=== PATIENT | female | born 1945 | race Caucasian/White ===

== ENCOUNTER 2019-06-22 13:02 | Outpatient (CLI) | payer MEDICARE, MEDICAID, SELFPAY ==
--- NOTE | 2019-06-22 13:12 | XR_ITS ---
WS: [id number] SHOULDER RIGHT TECHNIQUE: 3 views of the right shoulder CLINICAL INFORMATION: OSTEOARTHRITIS SHOULDER RIGHT COMPARISON: None. FINDINGS: Osteopenia. Moderate degenerative arthritis at the AC joint. Narrowing of the glenohumeral joint. A f ew calcified loose bodies within the glenohumeral joint and axillary recess. No acute fractures. XR/XR shoulder RT min 2V* [id number] IMPRESSION: 1. Moderate degenerative arthritis AC joint. 2. Moderate degenerative narrowing of the glenohumeral joint with a few calcif ied loose bodies measuring up to 2.3 CM.
--- NOTE | 2019-06-22 13:19 | XR_ITS ---
WS: [id number] SHOULDER LEFT TECHNIQUE: 3 views of the left shoulder CLINICAL INFORMATION: OSTEOARTHRITIS SHOULDER LEFT COMPARISON: None. FINDINGS: Osteopenia. Mild degenerative arthritis at the AC joint. Rotator cuff arthropathy. Mild degenerative narrowing glenohumeral joint. No acute fractures. Partially visualized left lung is unremarkable. XR/XR shoulder LT min 2V* [id number] IMPRESSION: Mild degenerative arthritis left shoulder. No acute fractures.
== END 2019-06-22 13:03 | disposition home or self-care (01) ==
LOC: WPI 13:07
PROVIDERS: Family Provider Family Medicine; PCP Family Medicine; Visit Provider Family Medicine
DX: M19.012 Primary osteoarthritis, left shoulder (principal); M19.011 Primary osteoarthritis, right shoulder; M24.011 Loose body in right shoulder
CPT/HCPCS: 73030

== ENCOUNTER 2019-08-16 13:04 | Outpatient (CLI) | payer MEDICARE, MEDICAID, SELFPAY ==
--- NOTE | 2019-08-16 13:15 | USCV_ITS ---
Loreta Goode Age: 73 Gender: F : 1945 Exam Date: 08/16/2019 13:29 Ordering Phys: Mian Valero MD Technologist: Heydi Elaine Exam Location: [facility] [place] Indication: LEFT LEG PAIN RIGHT LEFT Brachial 139.00 mmHg Brachial 109.00 mmHg Pressure (mmHg) Waveform Pressure (mmHg) Waveform HULL DRAFTER 220.00 DPA 182.00 Ankle/Brachial Index 1.31 Pre-Exercise Toe Pressure 78.00 Pre-Exercise Toe/Brachial Index 0.56 FINDINGS Normal resting JUVENCIO of 1.31 on the left side. Slightly diminished resting TBI. PVR waveforms showing slight blunting of the dicrotic notch. CONCLUSIONS Features of mild peripheral artery disease on the left side Dr Andrew Guerrero MD [facility] (Electronically Signed) Final Date: 17 August 2019 10:33 S
== END 2019-08-16 13:05 | disposition home or self-care (01) ==
LOC: US 13:09
PROVIDERS: Family Provider Family Medicine; PCP Family Medicine; Visit Provider Family Medicine
DX: M79.605 Pain in left leg (principal); I73.9 Peripheral vascular disease, unspecified
CPT/HCPCS: 93922

== ENCOUNTER → 2021-01-08 10:52 | Outpatient (BNVA) | payer MEDICARE, MEDICAID, SELFPAY | PROVIDERS: Family Provider Family Medicine; PCP Family Medicine; Visit Provider Emergency Medicine | DX: Z20.822 Contact with and (suspected) exposure to COVID-19 (principal) | CPT/HCPCS: 87635 ==

== ENCOUNTER 2021-06-28 18:09 | Emergency (ER) | payer MEDICARE, MEDICAID, SELFPAY ==
[2021-06-28 18:13] VITALS: BP 141/82; PULSE 68; RESP 26; TEMP 37.1; O2SAT 95; BMI 30.4
[2021-06-28 18:29] VITALS: BP 121/66; PULSE 75; RESP 18; O2SAT 95
--- NOTE | 2021-06-28 18:35 | ECG_ITS ---
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 Measurements Intervals [place] Rate: 63 P: NM: QRS: 38 QRSD: 91 T: -7 QT: 399 QTc: 411 Interpretive Statements ATRIAL FIBRILLATION NONSPECIFIC T-WAVE ABNORMALITY ABNORMAL RHYTHM ECG No previous ECG available for comparison Electronically Signed On 06-30-2021 5:05:26 METER SHOP SUPERINTENDENT by Dara Terry M.D. [id number]
--- NOTE | 2021-06-28 18:35 | XRR_ITS ---
PROCEDURE INFORMATION: Exam: XR Chest Exam date and time: 06/28/2021 6:35 PM Age: 75 years old Clinical indication: Chest wall pain; Additional info: Chest pain TECHNIQUE: Imaging protocol: XR of the chest. Views: 1 view. COMPARISON: CR Chest 2 views* [id number] 02/14/2017 1:53 PM FINDINGS: Lungs: Unremarkable. No consolidation. Pleural spaces: Unremarkable. No pleural effusion. No pneumothorax. Heart/Mediastinum: Unremarkable. No cardiomegaly. Bones/joints: Visualized osseous structures are intact. Rounded calcifications project around the glenohumeral joint suggestive of joint bodies. XR/XR chest 1V portable [id number] IMPRESSION: No acute findings.
[2021-06-28] MEDS: ondansetron 2 mg/ML SDV 2 mL 4 MG IVP (18:45)
[2021-06-28] MEDS: morphine 4 mg/mL SDV 1 mL IVP (18:46)
[2021-06-28 18:51] LABS: Basophils % 0.2 %; Eosinophils # 0.1 10^3/uL (0.0-0.8); Eosinophils % 1.7 %; Hematocrit 45.5 % (37.0-47.0); Hemoglobin 14.7 g/dL (11.5-15.3); Lymphocytes # 1.7 10^3/uL (0.8-4.8); Lymphocytes % 20.7 %; Mean Corpuscular HGB Conc 32.3 g/dL (30.0-36.0); Mean Corpuscular Hemoglobin 30.4 pg (28.0-34.0); Mean Corpuscular Volume 94.2 fl (81-99); Mean Platelet Volume 10.6 fL (7.4-10.4); Monocytes # 0.7 10^3/uL (0.2-0.9); Monocytes % 8.4 %; Neutrophils # 5.53 10^3/uL (1.8-7.7); Neutrophils % 68.6 %; Nucleated Red Blood Cells % 0 %; Platelet Count 355 10^3/cmm (130-400); Red Blood Count 4.83 10^6/uL (4.1-5.3); Red Cell Distribution Width 14.3 % (12.1-15.1); White Blood Count 8.1 10^3/uL (4.0-10.0)
[2021-06-28 18:56] LABS: INR 1.62 (0.8-1.2)
[2021-06-28 19:05] LABS: Troponin(5th) Baseline 40 ng/L (0-10)
--- NOTE | 2021-06-28 19:06 | W.ED.CHESTPA ---
HPI - Chest Pain General: Chief Complaint: Chest Pain Stated Complaint: CHEST PAIN Time Seen by Provider: 06/28/21 18:11 Source: patient History of Present Illness: HPI narrative: 75-year-old female presents to emergency department chief complaint of having intermittent episodic chest pain that was worse on the right side on the chest left-sided chest that was minimally improved with nitroglycerin patches and tablet patient reports that she is on chronic nitro patches which she had to applied to her skin in which he took nitro prior to arrival she has a known history of cardiac disease. She reports that she has been seen by telecardiology up now reports no recent medication changes or illnesses she does have a known history of pre-existing open heart bypass. Patient reports currently she has some mild back pain she does report having a known history of a [id number] amputation on the right due to a infection that she sustained several years ago. Patient does not report any shortness of breath or palpitations with her chest discomfort reports no other associated symptoms. MD complaint: chest pain Pertinent past history: coronary artery disease, prior [place] and CABG Onset (ago): hour(s) (2) Onset: during rest Pain location: left chest, right chest and epigastric Pain radiation: none Quality: aching Relieving factors: nothing Exacerbating factors: nothing Associated symptoms: Reports abdominal pain; Deny dyspnea, fever(s), nausea, palpitations or vomiting Treatment prior to arrival: nitroglycerin Review of Systems General: Reports: 10 or more systems reviewed and unremarkable except in HPI and below Const: Denies: fever(s), chills, fatigue or malaise Eyes: Denies: change in vision or blurry vision Card: Reports: chest pain; Denies: palpitations Resp: Denies: dyspnea or productive cough GI: Reports: abdominal pain; Denies: nausea or vomiting : Denies: flank pain Musc: Denies: extremity pain or extremity swelling Skin/Breast: Denies: rash or pruritus Neuro: Denies: headache(s) Psych: Denies: anxiety or depression Jeff/Lymph: Denies: easy bleeding All/Imm: Denies: urticaria, throat swelling or facial swelling PFS ED PFSH: Medical History Atrial fibrillation CAD (coronary artery disease) CHF (congestive heart failure) Depression MIKHAIL (generalized anxiety disorder) GERD (gastroesophageal reflux disease) HTN (hypertension) Lumbar radiculopathy Neuropathy Obstructive sleep apnea Right above-knee amputee 2000 Surgical History Hx of cholecystectomy Hx of hysterectomy Hx of thyroidectomy 1998 Family History Other Diabetes Hypertension Myocardial infarction Social History Alcohol intake: never Physical Exam Narrative: EXAM NARRATIVE: Patient appears nontoxic in which appears in no obvious acute distress on exam. Const: COMMON NORMALS: no acute distress, patient oriented x3 and healthy appearing HENMT: COMMON NORMALS: normocephalic and atraumatic HEAD & SCALP: normocephalic and atraumatic Eye: COMMON NORMALS: Equal, round and reactive pupils present and EOMs intact bilaterally PUPIL: Yes Equal, round and reactive pupils present Neck/C-Spine: COMMON NORMALS: full ROM, supple and no JVD Lymph: LYMPHATIC: no lymphadenopathy noted Chest: COMMONS NORMALS: normal inspection of the chest and normal palpation of entire chest wall Resp: COMMON NORMALS: normal respiratory effort, No retractions and clear to auscultation bilaterally EFFORT & INSPECTION: Yes able to speak in complete sentences and Yes symmetric chest movement AUSCULTATION: clear to auscultation bilaterally Cardio: COMMON NORMALS: no JVD, regular rate and regular rhythm RATE: regular rate RHYTHM: regular rhythm GI: COMMON NORMALS: Normal to inspection, nondistended, normoactive bowel sounds present, Soft to palpation and non-tender INSPECTION: Yes normal to inspection PALPATION: Yes Soft to palpation : COMMON NORMALS: Yes no CVA tenderness BLADDER/KIDNEY EXAM: Yes no CVA tenderness Back/Pelvis: COMMON NORMALS: no CVA tenderness Extremity: COMMON NORMALS: normal to inspection and full ROM Neuro: COMMON NORMALS: patient oriented x3, CN's II-XII intact bilaterally, moves all extremities and no focal motor deficits Psych: COMMON NORMALS: mental status grossly normal, Normal thought process present, cooperative and normal affect THOUGHT PROCESS: Normal thought process present Skin: COMMON NORMALS: no rashes or lesions noted GENERAL SKIN EXAM: no rashes or lesions noted Course ED course: Due to the patient's symptoms and condition lab work imaging will be obtained patient will be provided morphine for her breakthrough pain control at this time aspirin were provided per protocol we will continue to follow with a cardiac work-up. Vital Signs: Vital signs: Vital Signs Temperature 98.7 F 06/28/21 18:13 Pulse Rate 75 06/28/21 18:29 Respiratory Rate 18 06/28/21 18:29 Blood Pressure 121/66 06/28/21 18:29 Pulse Oximetry 95 06/28/21 18:29 MDM - Chest Pain MDM Narrative: Medical decision making narrative: Patient's repeat troponin came back with a negative delta 6 both troponins were less than 100 patient had no additional chest pain with emergency department no EKG changes either were noted. At this time be based on patient being currently asymptomatic I did offer admission to the hospital due to I am concerned that this may be an anginal equivalent chest pain in a cardiac despite negative testing patient has declined at this time reporting she would rather further follow-up with her molding press operator and and trial to be discharged home. Advised the patient she continues to use more nitroglycerin patches or pills for the chest pain is unresolved that she must return immediately for further evaluation management as it could be unstable angina or her having a cardiac event. Patient understood the patient's daughter was present during this conversation. Patient will be subsequently discharged home advised further follow-up with Dr. Terry her molding press operator in the next 1 to 2 days which is advised return the interim if any of her symptoms persist or worse. Lab Data: Labs: Lab Results 06/28/21 06/28/21 06/28/21 18:10 18:10 18:10 WBC 8.1 10^3/uL 10^3/ uL (4.0-10.0) RBC 4.83 10^6/uL 10^6 /uL (4.1-5.3) Hgb 14.7 g/dL g/dL (11.5-15.3) Hct 45.5 % % (37.0-47.0) MCV 94.2 fl fl (81-99) MCH 30.4 pg pg (28.0-34.0) MCHC 32.3 g/dL g/dL (30.0-36.0) RDW 14.3 % % (12.1-15.1) Plt Count 355 10^3/cmm 10^3 /cmm (130-400) MPV 10.6 fL H fL (7.4-10.4) Neut % (Auto) 68.6 % % Lymph % (Auto) 20.7 % % [place] % (Auto) 8.4 % % Eos % (Auto) 1.7 % % Baso % (Auto) 0.2 % % Neut # (Auto) 5.53 10^3/uL 10^3 /uL (1.8-7.7) Lymph # (Auto) 1.7 10^3/uL 10^3/ uL (0.8-4.8) [place] # (Auto) 0.7 10^3/uL 10^3/ uL (0.2-0.9) Eos # (Auto) 0.1 10^3/uL 10^3/ uL (0.0-0.8) Baso # (Auto) 0.0 10^3/uL 10^3/ uL (0.0-0.1) Nucleated RBC % (a uto) 0 % % Nucleated RBCs # 0.0 /100WBC /100W BC PT 19.60 SECONDS H S ECONDS (12.1-14.9) INR 1.62 H (0.8-1.2) APTT 34.0 SECONDS SECO NDS (23.9-36.7) Sodium 139 mmol/L mmol/L (136-145) Potassium 4.1 mmol/L mmol/L (3.5-5.1) Chloride 101 mmol/L mmol/L (98-107) Carbon Dioxide 28 mmol/L mmol/L (22-29) Anion Gap 14.1 (5-19) BUN 12 mg/dL mg/dL (8-23) Creatinine 0.6 mg/dL mg/dL (0.5-0.9) GFR Calculation Not Reportable Glucose 171 mg/dL H mg/dL (65-115) Calculated Osmolal ity 292 mOsm/kg mOsm/ kg (285-295) Calcium 8.6 mg/dL mg/dL (8.5-10.5) Total Bilirubin 1.0 mg/dL mg/dL (0.15-1.2) AST 115 U/L H U/L (0-32) ALT 42 U/L H U/L (0-33) Alkaline Phosphata se 105 IU/L IU/L (35-105) Troponin T Baselin e Troponin T 120 Min [place] Delta Troponin T NT-Pro-B Natriuret Pep 729 pg/mL H pg/mL (0-450) Total Protein 5.7 g/dL L g/dL (6.6-8.7) Albumin 3.8 g/dL g/dL (3.5-5.2) Globulin 1.9 g/dL g/dL (1.3-4.6) Lipase 37 U/L U/L (13-60) Urine Color Urine Appearance Urine pH Ur Specific Gravit y Urine Protein Urine Glucose (UA) Urine Ketones Urine Blood Urine Nitrate Urine Bilirubin Urine Urobilinogen Ur Leukocyte Layne ase 06/28/21 06/28/21 06/28/21 18:10 19:50 20:38 WBC RBC Hgb Hct MCV MCH MCHC RDW Plt Count MPV Neut % (Auto) Lymph % (Auto) [place] % (Auto) Eos % (Auto) Baso % (Auto) Neut # (Auto) Lymph # (Auto) [place] # (Auto) Eos # (Auto) Baso # (Auto) Nucleated RBC % (a uto) Nucleated RBCs # PT INR APTT Sodium Potassium Chloride Carbon Dioxide Anion Gap BUN Creatinine GFR Calculation Glucose Calculated Osmolal ity Calcium Total Bilirubin AST ALT Alkaline Phosphata se Troponin T Baselin e 40 ng/L H ng/L (0-10) Troponin T 120 Min [place] 33.55 ng/L H ng/L (0-10) Delta Troponin T -6.45 ABS# L ABS# (0-10) NT-Pro-B Natriuret Pep Total Protein Albumin Globulin Lipase Urine Color Yellow (Yellow) Urine Appearance Clear (CLEAR) Urine pH 5 (5-7) Ur Specific Gravit y 1.010 (1.005-1.030) Urine Protein Neg (Negative) Urine Glucose (UA) 4+ H (Normal) Urine Ketones Negative (Negative) Urine Blood Neg (Negative) Urine Nitrate Negative (Negative) Urine Bilirubin Neg (Negative) Urine Urobilinogen Norm mg/dL mg/dL (Negative) Ur Leukocyte Layne ase Negative (Negative) Discharge Plan Discharge Patient Disposition: Home Clinical Impression: Chest pain, Angina at rest Condition: Stable Prescriptions: No Action nitroglycerin 0.4 mg tablet, sublingual 0.4 mg sublingual Q5M PRNRF: 0 cinnamon bark [Cinnamon] 500 mg capsule 500 mg PO DAILY RF: 0 Invokana 100 mg tablet 100 mg PO DAILY RF: 0 levothyroxine 100 mcg tablet 100 mcg PO DAILY RF: 0 Lantus Solostar U-100 Insulin 100 unit/mL (3 mL) insulin pen 38 unit SUBCUT DAILY RF: 0 potassium chloride 10 mEq tablet extended release 20 meq PO DAILY RF: 0 pravastatin 80 mg tablet 80 mg PO DAILY RF: 0 duloxetine 60 mg capsule,delayed release(DR/EC) 60 mg PO DAILY RF: 0 metformin 500 mg tablet 500 mg PO BID RF: 0 metoprolol succinate 100 mg tablet extended release 24 hr 100 mg PO DAILY RF: 0 furosemide 20 mg tablet 20 mg PO DAILY RF: 0 warfarin PO RF: 0 pregabalin [Lyrica] 300 mg capsule 300 mg PO BID RF: 0 hydrocodone-acetaminophen [[place]] 10-325 mg tablet 1 tab PO Q8H PRNRF: 0 metoprolol succinate 25 mg tablet extended release 24 hr See Rx Instructions .ROUTE .COMPLEX Qty: 30 RF: 5 Discharge Orders: Discharge ED (Routine); Ordered 06/28/21 Ordered By: Jaswant Wright Referrals: Dara Terry MD [Physician] - 1-3 days Mian Valero MD [Primary Care Provider] - 1-3 days Discharge Diet: Cardiac Discharge Activity: Increase activity as tolerated Patient Instructions: Angina, Angina (ED), Chest Pain (ED), Opioid Safety Activity Restrictions/Additional Instructions: Loreta you were offered both admission to the hospital for year concerns of your heart due to your cardiac history and risk factors in which you have declined in which you have elected to be discharged home with prompt follow-up outpatient with your molding press operator or primary care doctor and contact them in the next 1-2 days. You have been advised by the emergency room physician that if your chest pain returns or is uncontrolled with a nitroglycerin that you are already currently prescribed you are to return immediately to the ER for further assessment and management. It has been indicated to you before it is recommended for you to the chemical stress test it is recommended that you further follow-up with your molding press operator in regards to requiring this to further rule out underlying cardiac issues. Coding Level of Care Code ED Principal Statistical Programmer for Álvaro Fwd Exam Comprehensive
[2021-06-28 19:14] LABS: Alanine Aminotransferase 42 U/L (0-33); Albumin Level 3.8 g/dL (3.5-5.2); Alkaline Phosphatase 105 IU/L (35-105); Anion Gap 14.1 (5-19); Aspartate Amino Transferase 115 U/L (0-32); Blood Urea Nitrogen 12 mg/dL (8-23); Calcium 8.6 mg/dL (8.5-10.5); Carbon Dioxide 28 mmol/L (22-29); Chloride 101 mmol/L (98-107); Globulin 1.9 g/dL (1.3-4.6); Glucose 171 mg/dL (65-115); Lipase 37 U/L (13-60); NT Pro B Type Natriuretic Pept 729 pg/mL (0-450); Osmolality Calculated 292 mOsm/kg (285-295); Potassium 4.1 mmol/L (3.5-5.1); Sodium 139 mmol/L (136-145); Total Protein 5.7 g/dL (6.6-8.7)
[2021-06-28] MEDS: aspirin 81 mg Chew Tablet 324 MG PO (19:49)
[2021-06-28 19:56] LABS: Add Urine Microscopic? NO; Charge for UA Resulting for Rev
[2021-06-28 19:58] LABS: Protein Urine Neg (Negative); Urine Appearance Clear (CLEAR); Urine Color Yellow (Yellow); pH Urine 5 (5-7)
[2021-06-28 19:59] LABS: Bilirubin Urine Neg (Negative); Blood Urine Neg (Negative); Glucose Urine UA 4+ (Normal); Ketones Urine Negative (Negative); Leukocyte Esterase Urine Negative (Negative); Nitrate Urine Negative (Negative); Urobilinogen Urine Norm (Negative)
--- NOTE | 2021-06-28 20:35 | ECG_ITS ---
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 Measurements Intervals [place] Rate: 71 P: [place]: QRS: -12 QRSD: 90 T: -30 QT: 370 QTc: 404 Interpretive Statements ATRIAL FIBRILLATION ANTERIOR MYOCARDIAL INFARCTION , OF INDETERMINATE AGE [40+ ms Q WAVE AND/OR ST/T ABNORMALITY IN V3/V4] INFERIOR MYOCARDIAL INFARCTION , OF INDETERMINATE AGE [40+ ms Q WAVE AND/OR ST/T ABNORMALITY IN II/aVF] Compared to ECG 06/28/2021 18:48:52 Myocardial infarct finding now present T-wave abnormality no longer present Electronically Signed On 06-30-2021 5:19:19 BUS ATTENDANT by Dara Terry M.D. [id number]
[2021-06-28 21:08] LABS: Troponin 5 2HR 33.55 ng/L (0-10)
[2021-06-28 21:16] LABS: Troponin 5 2HR Delta -6.45 ABS# (0-10)
[2021-06-28 22:22] VITALS: BP 122/76; PULSE 88; RESP 25; O2SAT 98
== END 2021-06-28 22:24 | disposition home or self-care (01) ==
PROVIDERS: Emergency Provider Emergency Medicine; PCP Family Medicine
DX: I25.119 Atherosclerotic heart disease of native coronary artery with unspecified angina pectoris (principal); I48.91 Unspecified atrial fibrillation; I11.0 Hypertensive heart disease with heart failure; I50.9 Heart failure, unspecified; E89.0 Postprocedural hypothyroidism; K21.9 Gastro-esophageal reflux disease without esophagitis; G47.33 Obstructive sleep apnea (adult) (pediatric); Z79.01 Long term (current) use of anticoagulants; Z79.84 Long term (current) use of oral hypoglycemic drugs; Z79.4 Long term (current) use of insulin; Z89.611 Acquired absence of right leg above knee
CPT/HCPCS: 71045; 80053; 81003; 83690; 83880; 84484; 85025; 85610; 85730; 93005; 96374; 96375; 99284; J2270; J2405

== ENCOUNTER 2021-09-04 06:45 | Outpatient (CLI) | payer MEDICARE, MEDICAID, SELFPAY ==
[2021-09-04 07:05] VITALS: BMI 30.4
--- NOTE | 2021-09-04 07:07 | ECG_ITS ---
[facility] Test Date: 2021-09-04 Pat Name: Loreta Goode Department: Room: Gender: Female Shop Laborer: Veda Munoz : 1945 Requested By: Dara Terry Order Number: [id number] Last MD: Dara Terry M.D. Interpretive Statements NAME OF STUDY: LEXISCAN SESTAMIBI STRESS TEST INDICATION: Chest Pain PROCEDURE: At the baseline, the blood pressure was 122/90 mmHg with a heart rate of 77 bpm. The electrocardiogram showed atrial fibrillation with controlled ventricular response with possible old anterior infarct. The Lexiscan was infused over a period of 20 seconds. A total of 0.4 milligrams of Lexiscan was infused. The stress phase was continued for a total of 5 minutes. Heart rate at the end of the stress phase was 92 bpm with a blood pressure of 131/91 mm Hg. The EKG at the peak infusion revealed atrial fibrillation with no significant ST-T wave changes. Isolated PVCs/aberrantly conducted beats noted during Lexiscan infusion. The study was terminated to protocol completion. Sestamibi was injected 20 seconds after the Lexiscan infusion. Blood pressure at the end of the recovery phase was 130/89 mmHg with a heart rate of 81 beats per minute. CONCLUSION: 1. No significant EKG changes with the LexiScan infusion. 2. No LexiScan induced chest pain or cardiac arrhythmia. 3. Normal blood pressure and heart rate response. 4. Sestamibi/sestamibi perfusion scan pending; see separate report. Electronically Signed On 09-04-2021 15:51:02 CDT by Dara Terry M.D. [id number]
--- NOTE | 2021-09-04 07:08 | NMCV_ITS ---
NM michael perf SPECT r/s* [id number] Loreta Goode Age: 76 Gender: F : 1945 Exam Date: 09/04/2021 08:07 Ordering Phys: Dara Terry MD ([email or web address]) Technologist: GARTH Cordero Exam Location: [facility] Indications: CHEST PAIN STRESS TEST Please see separate stress test report in [facility] for full findings IMAGE PROTOCOL Rest/Stress 1 Lexiscan Day Radiopharmaceutical Dose (mCi) Administration Site Administered by Rest: Tc-99m 10.8 IV GARTH Long Sestamibi Stress:Tc-99m 32.8 IV GARTH Long Sestamibi Rest: 04-Sep-2021 60 Discovery 630 Stress: 04-Sep-2021 30 Discovery 630 0.4mg Lexiscan. Supine position only as patient was unable to lay prone. SPECT RESULTS Technical Quality: Excellent Raw Data Analysis: Normal Image Corrections: No attenuation or motion correction applied Summed Stress Score: 8 Summed Rest Score: 9 Summed Difference Score: 2 PERFUSION FINDINGS Small sized perfusion abnormality of mid anterolateral, apical anterior, apical septal, apical lateral and apical fong on rest images with mild reversibility in mid inferolateral wall on stress images. FUNCTIONAL RESULTS (calculated via Gated SPECT) Stress Image LV EF (%): 72 Stress EDV (mL):96 TID: 0.91 Stress ESV (mL):27 FUNCTIONAL FINDINGS: The left ventricle is normal in size. Transient Ischemia Dilatation of 0.91. There is normal left ventricular systolic function. The left ventricular ejection fraction is normal with a value of 72%. There is hypokinesis of apical septal and apical fong. IMPRESSIONS 1. Small sized perfusion abnormality of mid anterolateral, apical anterior, apical septal, apical lateral and apical fong with mild reversibility in mid inferolateral wall on stress images. 2. This likely represents old myocardial infarction in left anterior descending artery/circumflex territory with minimal tammy-infarct ischemia. 3. The left ventricular ejection fraction is normal with a value of 72%. 4. There is hypokinesis of apical septal and apical fong. 5. No significant EKG changes with Lexiscan infusion. 6. No prior similar studies to compare. Dara Terry MD (Electronically Signed) Final Date: 07 September 2021 12:46 S
[2021-09-04 08:58] VITALS: BP 130/89; PULSE 89
== END 2021-09-04 06:46 | disposition home or self-care (01) ==
LOC: CDL 06:46
PROVIDERS: PCP Family Medicine; Visit Provider Internal Medicine Cardiovascular Disease
DX: R07.9 Chest pain, unspecified (principal)
CPT/HCPCS: 78452; 93017; A9500

== ENCOUNTER → 2021-11-09 13:56 | Outpatient (BNVA) | payer MEDICARE, MEDICAID, SELFPAY | PROVIDERS: PCP Nurse Practitioner Family; Visit Provider Internal Medicine Cardiovascular Disease | DX: R07.9 Chest pain, unspecified (principal); I25.119 Atherosclerotic heart disease of native coronary artery with unspecified angina pectoris; I48.11 Longstanding persistent atrial fibrillation; I11.0 Hypertensive heart disease with heart failure; I50.9 Heart failure, unspecified; G47.33 Obstructive sleep apnea (adult) (pediatric) | CPT/HCPCS: 99214 ==

== ENCOUNTER → 2022-01-22 09:22 | Outpatient (BNVA) | payer MEDICARE, MEDICAID, SELFPAY | PROVIDERS: PCP Nurse Practitioner Family; Visit Provider Internal Medicine | DX: I25.119 Atherosclerotic heart disease of native coronary artery with unspecified angina pectoris (principal); I48.11 Longstanding persistent atrial fibrillation; I11.0 Hypertensive heart disease with heart failure; I50.9 Heart failure, unspecified; G47.33 Obstructive sleep apnea (adult) (pediatric) | CPT/HCPCS: 99214 ==

== ENCOUNTER 2022-04-26 11:58 | Outpatient (CLI) | payer MEDICARE, MEDICAID, SELFPAY ==
--- NOTE | 2022-04-26 12:00 | USCV_ITS ---
Loreta Goode Age: 76 Gender: F : 1945 Exam Date: 04/26/2022 12:51 Ordering Phys: Blade Morales M.D ([email or web address]) Technologist: Rinku Cowart Exam Location: [facility] [place] Indication: chest pain BP: 136 / 76 HR: 86 Rhythm: Atrial fibrillation Technical Quality: Adequate MEASUREMENTS (Male / Female) Normal Values 2D ECHO LV Diastolic Diameter PLAX 3.7 cm 4.2 - 5.9 / 3.9 - 5.3 cm LV Systolic Diameter PLAX 2.3 cm IVS Diastolic Thickness 1.1 cm 0.6 - 1.0 / 0.6 - 0.9 cm IVS Systolic Thickness 1.2 cm LVPW Diastolic Thickness 1.1 cm 0.6 - 1.0 / 0.6 - 0.9 cm LVPW Systolic Thickness 1.3 cm LVOT Diameter 2.0 cm LV Ejection Fraction 2D Teich 68.3 % LV Ejection Fraction MOD 2C 56.2 % LV Ejection Fraction 2C AL 58.3 % LA Diameter 4.3 cm LA Width 4.4 cm LA Height 7.2 cm RA Width 3.4 cm RA Height 5.9 cm Aorta at Sinotubular Diameter 2.8 cm IVC Diameter 1.3 cm M-MODE Aortic Annulus Diameter 1.5 cm LA Ao Ratio MM 1.2 MV E Point Septal Separation 0.4 cm DOPPLER AV Peak Velocity 104.7 cm/s LVOT Peak Velocity 86.0 cm/s AV Area Cont Eq vti 2.7 cm squared AV Area Cont Eq pk 2.6 cm squared MV Peak Velocity 105.0 cm/s MV Area PHT 4.6 cm squared MV E' Velocity 40.0 cm/s Mitral E to MV E' Ratio 4.2 Mitral E to LV E' Lateral Ratio 3.7 Mitral E to LV E' Septal Ratio 4.9 TR Peak Velocity 299.2 cm/s TR Peak Gradient 35.8 mmHg TR Mean Velocity 227.8 cm/s TR Mean Gradient 21.8 mmHg TR Velocity Time Integral 76.8 cm Right Atrial Pressure 3.0 mmHg Pulmonary Artery Systolic Pressu 38.8 mmHg PV Peak Velocity 91.0 cm/s RV Acceleration Time 0.1 s RV Ejection Time 0.2 s RV AcT/ET 0.6 FINDINGS Left Ventricle Normal left ventricular size and systolic function, EF 62 %. Mild left ventricular hypertrophy. Right Ventricle The right ventricle is normal in size and function. Right Atrium Moderately increased right atrial size. Left Atrium Moderately increased left atrial size. Mitral Valve Mild mitral valve regurgitation. Aortic Valve No gross abnormalities noted Tricuspid Valve Trace to mild tricuspid valve regurgitation. Pulmonic Valve Pulmonic valve not well visualized. Pericardium No pericardial effusion. Aorta Normal ascending aorta dimension. IVC Inferior vena cava not visualized. CONCLUSIONS Normal left ventricular size and systolic function, EF 62 %. Mild left ventricular hypertrophy. Moderately increased left atrial size. Moderately increased left atrial size. Mild mitral valve regurgitation. Trace to mild tricuspid valve regurgitation. Estimated pulmonary artery peak systolic pressure 39 mmHg Technically difficult study because of poor ultrasonic window Dr Andrew Guerrero MD [facility] (Electronically Signed) Final Date: 27 April 2022 20:19 S
== END 2022-04-26 11:59 | disposition home or self-care (01) ==
LOC: RAD 11:59
PROVIDERS: PCP Family Medicine; Visit Provider Internal Medicine
DX: R07.9 Chest pain, unspecified (principal); I08.1 Rheumatic disorders of both mitral and tricuspid valves
CPT/HCPCS: 93306

== ENCOUNTER 2022-06-09 14:12 | Outpatient (CLI) | payer MEDICARE, MEDICAID, SELFPAY ==
--- NOTE | 2022-06-09 14:20 | XR_ITS ---
WS: [id number] Exam: XR shoulder RT min 2V* [id number] Date/Time of Exam: 06/09/2022 2:20 PM Reason For Exam: R SHOULDER PAIN Comparison 07/19/2019. No acute fracture or dislocation. Degenerative change at the AC joint and glenohumeral joint. There a re large calcified densities seen in the region of the subcoracoid bursa and the axillary pouch proba nayla synovial osteochondromas. XR/XR shoulder RT min 2V* [id number] IMPRESSION: 1. No fracture. 2. 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 3. 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
--- NOTE | 2022-06-09 14:20 | MR_ITS ---
WS: [id number] MRI CERVICAL SPINE NONCONTRAST TECHNIQUE: Sagittal T1, T2 and STIR imaging. Axial T2, gradient, and fiesta imaging. CLINICAL INFORMATION: CERVICAL RADICULOPATHY COMPARISON: None. FINDINGS: Straightening of the normal cervical lordosis. Moderate spondylitic changes. Slight anterolisthesis C 3 on C4. Disc bulging worse at C5-C6 and C6-C7 with slight indentation on cervical cord and moderate to severe central canal stenosis C2-C3: Moderate facet arthropathy and osteophytic ridging. Mild bilateral foraminal narrowing. C3-C4: Disc osteophyte complex with endplate ridging. Mild central canal stenosis. Moderate LEFT face t arthropathy. Mild bilateral bony foraminal narrowing. C4-C5: Disc osteophyte complex with mild central canal stenosis and slight contact of the cervical co rd. Moderate facet arthropathy. Moderate bilateral bony foraminal narrowing. C5-C6: Disc osteophyte complex with endplate ridging. Impingement on the cervical cord with moderate to severe central canal stenosis. Moderate bilateral bony foraminal narrowing. Mild facet arthropathy . C6-C7: Mild disc osteophyte complex endplate ridging. LEFT pericentral protrusion impinges the LEFT v entral cervical cord. Moderate to severe central canal stenosis. Severe bilateral bony foraminal narr owing. C7-T1: Mild RIGHT greater than LEFT bony foraminal narrowing. Moderate facet arthropathy. Visualized brain stem structures: Normal. Prevertebral soft tissues: Normal. Small amount of facet synovitis LEFT C3-C4 with small facet effusion. MR/MR cervical spin wo con* [id number] IMPRESSION: 1. Straightening of the normal cervical lordosis with moderate spondylitic micaela nges. Slight anterolisthesis C2 on C3 and C3 on C4. 2. Moderate to severe central canal stenosis C5-C6 and C6-C7 with indentation on cervical cord. Cord signal appears normal. 3. Mild central canal stenosis C4-C5. 4. Moderate to severe bony foraminal narrowing bilateral C4-C5, bilateral C5-C 6, and severe bilateral C6-C7 worse in the LEFT. 5. Small amount of facet synovitis LEFT C3-C4 with small facet effusion.
== END 2022-06-09 14:13 | disposition home or self-care (01) ==
LOC: RAD 14:12
PROVIDERS: PCP Family Medicine; Visit Provider General Practice
DX: M54.12 Radiculopathy, cervical region (principal); M19.011 Primary osteoarthritis, right shoulder
CPT/HCPCS: 72141; 73030

== ENCOUNTER 2022-06-28 11:11 | Inpatient (IN) | payer MEDICARE, MEDICAID, SELFPAY ==
[2022-06-28] VITALS (11 sets, daily range): BP systolic 88–136; BP diastolic 52–84; PULSE 73–90; RESP 16–19; TEMP 36.7; O2SAT 91–98
--- NOTE | 2022-06-28 11:37 | ECG_ITS ---
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 Measurements Intervals [place] Rate: 80 P: 0 [place]: 0 QRS: 1 QRSD: 120 T: 240 QT: 394 QTc: 456 Interpretive Statements ATRIAL FIBRILLATION POSSIBLE ANTERIOR MYOCARDIAL INFARCTION , PROBABLY OLD [30 ms Q WAVE IN V3/V4, OR R < 0.2 mV IN V4] MODERATE T-WAVE ABNORMALITY, CONSIDER INFERIOR ISCHEMIA [-0.1+ mV T-WAVE IN II/aVF] Compared to ECG 06/28/2021 20:19:09 T-wave abnormality now present Possible ischemia now present Myocardial infarct finding still present Electronically Signed On 06-28-2022 20:29:38 CELLULAR PLASTICS CUTTER by Andrew Guerrero M.D. [id number]
--- NOTE | 2022-06-28 11:37 | ECG_ITS ---
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 Measurements Intervals [place] Rate: 71 P: 0 [place]: 0 QRS: 17 QRSD: 108 T: -27 QT: 415 QTc: 453 Interpretive Statements ATRIAL FIBRILLATION LOW QRS VOLTAGE IN PRECORDIAL LEADS [QRS DEFLECTION < 1.0 mV IN CHEST LEADS] NONSPECIFIC ST & T-WAVE ABNORMALITY ABNORMAL RHYTHM ECG Compared to ECG 06/28/2021 20:19:09 Low QRS voltage now present T-wave abnormality now present Myocardial infarct finding no longer present Electronically Signed On 06-28-2022 20:31:12 TECHNOLOGY TRAINER by Andrew Guerrero M.D. [id number]
--- NOTE | 2022-06-28 12:19 | XRR_ITS ---
PROCEDURE INFORMATION: Exam: XR Chest Exam date and time: 06/28/2022 12:47 PM Age: 76 years old Clinical indication: Dyspnea TECHNIQUE: Imaging protocol: Radiologic exam of the chest. Views: 1 view. COMPARISON: CR XR chest 1V portable [id number] 06/28/2021 7:21 PM FINDINGS: Lungs: Lung volumes are decreased with mild relative elevation left hemidiaphragm, stable. Pleural spaces: Unremarkable. No pleural effusion. No pneumothorax. Heart/Mediastinum: Cardiac silhouette is moderately enlarged but stable. Bones/joints: Unremarkable for age. Other findings: There are numerous large nodular calcifications projecting over the right shoulder presumed to represent loose bodies, unchanged. XR/XR chest 1V portable [id number] IMPRESSION: Cardiomegaly with chronically decreased lung volumes, stable.
--- NOTE | 2022-06-28 12:27 | ED_ITS ---
HPI - Chest Pain General: Chief Complaint: Chest Pain Stated Complaint: chest pain, dizziness Time Seen by Provider: 06/28/22 11:42 Source: patient Mode of arrival: ambulatory History of Present Illness: 68-year-old female presents emergency room with complaints of dizziness and chest pain. She had an episode of chest pain this morning that radiated into her back after she walked out to her car she was not particularly exerting herself or carrying any heavy objects. She wears a nitroglycerin patch she applied a new 1 because of the pain her chest discomfort got better she said she had another episode of chest discomfort yesterday. She has a history of atrial fibrillation states she also has a history of previous myocardial infarction but has not had any stents placed. She is on Coumadin because of the atrial fibrillation. She tells me she had an episode of chest pain yesterday as well but then none prior to that and the previous 2 weeks. Chest pain is resolved at this time. She had an tress test in the last couple of months that was reported to be negative she did not have to have a follow-up angiogram. MD complaint: chest pain Pertinent past history: prior [place] Onset (ago): hour(s) Timing of current episode: episodic Prior episodes: Yes Onset: during exertion Pain location: left chest Pain radiation: back Severity: mild Quality: tightness and aching Relieving factors: nitroglycerin Exacerbating factors: nothing Associated symptoms: Deny abdominal pain, dyspnea, fever(s), nausea, palpitations or vomiting Review of Systems Const: Denies: fever(s), chills, body aches, change in appetite, fatigue or malaise ENMT: Denies: throat pain, ear or mastoid pain, nasal discharge or nasal congestion Card: Reports: chest pain; Denies: palpitations, irregular heart rhythm, edema, dyspnea on exertion or orthopnea Resp: Denies: dyspnea, productive cough or non-productive cough GI: Denies: abdominal pain, nausea, vomiting, hematemesis, coffee ground emesi s, diarrhea, constipation, bloating, hematochezia or melena : Denies: flank pain, difficulty voiding, dysuria, urinary frequency or urinary urgency Skin/Breast: Denies: rash or pruritus PFSH ED 2 PFSH: Medical History Atrial fibrillation CAD (coronary artery disease) CHF (congestive heart failure) Dementia Depression Diabetes mellitus with hyperglycemia MIKHAIL (generalized anxiety disorder) GERD (gastroesophageal reflux disease) HTN (hypertension) Hypothyroid Lumbar radiculopathy Neuropathy Obstructive sleep apnea Surgical History Hx of cholecystectomy Hx of hysterectomy Hx of thyroidectomy 1998 Right above-knee amputee 2000 Family History Other Diabetes Hypertension Myocardial infarction Social History Smoking and tobacco status: never smoked Second hand smoke exposure: No Smoking risk assessment/counseling performed?: No Alcohol intake: never Desire information about alcohol rehabilitation?: No Counseling given: No Desire information about substance/drug rehabilitation?: No Counseling given: No Adopted: No Caregiver/support person: Yes (family) Lives independently: Yes (With help of family) Household members: none Housing: House Marital status: / Number of children: 3 Number of grandchildren: 7 Highest education level completed: High School Graduate service: No Current occupational status: retired Current occupational exposures/hazards: No History of recent travel: No Current gender identity: Female Physical Exam Const: GENERAL APPEARANCE: cooperative and comfortable ORIENTATION/CONSCIOUSNESS: Yes awake, Yes oriented to person, Yes oriented to place and Yes oriented to time HENMT: COMMON NORMALS: normocephalic, atraumatic and hearing grossly normal bilaterally HEAD & SCALP: normocephalic and atraumatic Resp: COMMON NORMALS: normal respiratory effort, No retractions, No use of acc essory muscles and clear to auscultation bilaterally AUSCULTATION: clear to auscultation bilaterally Cardio: COMMON NORMALS: regular rate, regular rhythm and No murmurs present (Cardio) RATE: regular rate RHYTHM: regular rhythm GI: COMMON NORMALS: Soft to palpation and No hepatosplenomegaly present AUSCULTATION: Yes normoactive bowel sounds PALPATION: Yes Soft to palpation, No Tenderness to palpation present (GI), No Guarding due to palpation present (G I) and Yes No hepatosplenomegaly present Extremity: COMMON NORMALS: normal to inspection, capillary refill normal, no clubbing, cyanosis or edema, no calf tenderness and no pedal edema Neuro: SENSORIUM/ORIENTATION: Yes oriented to person, Yes oriented to place and Yes oriented to time Skin: COMMON NORMALS: no rashes or lesions noted GENERAL SKIN EXAM: no rashes or lesions noted Course Vital Signs: Vital signs: Vital Signs Temperature 98.0 F 06/30/22 12:40 Pulse Rate 71 06/30/22 12:40 Respiratory Rate 18 06/30/22 12:40 Blood Pressure 106/82 06/30/22 12:40 Pulse Oximetry 95 06/30/22 12:40 Oxygen Delivery Me thod 06/30/22 11:26 MDM - Chest Pain Medical Decision Making Previous stress testing in August 2021 showed an area of reversibility in the inferior lateral wall on stress images is described as mild. Appears it was treated medically. Patient also has hypokalemia and increase in transaminases and T bili. Ultrasound liver report is normal common bile duct not enlarged. Will admit patient IV fluids and potassium replacement complete the work-up may need to evaluate her medical management see if it needs to be adjusted Medical Records I reviewed the patient's medical records. Lab Data I reviewed the patient's lab results. 06/28/22 12:10 06/28/22 12:10 Radiology Impressions Chest X-Ray 06/28/22 12:19 IMPRESSION: Cardiomegaly with chronically decreased lung volumes, stable. Gallbladder Ultrasound 06/28/22 13:12 IMPRESSION: 1. Severely limited assessment of the liver and pancreas. 2. Prior cholecystectomy. Abdomen/Pelvis CT 06/28/22 17:35 IMPRESSION: 1. Findings consistent with mild to moderate pancolitis. Findings may be infectious or inflammatory in nature, or could suggest pseudomembranous colitis in the appropriate clinical situation. Recommend clinical correlation. 2. Indeterminate hyperdense focus in the right kidney. 3. Colonic diverticulosis. No evidence for diverticulitis. 4. Incidental/nonacute findings are listed in the report. COMMENTS: Consistent with the [employer]'s Incidental Findings Committee white paper (J Am Alli Radiol 2018): Any incidental renal lesion less than 1 cm or classified as too small to characterize, or any incidental cystic renal lesion characterized as simple-appearing, is likely benign. No follow-up imaging is recommended for these lesions per consensus recommendations based on imaging criteria. Laboratory Results WBC 8.5 10^3/uL (4.0-10.0) 06/28/22 12:10 RBC 4.44 10^6/uL (4.1-5.3) 06/28/22 12:10 Hgb 13.8 g/dL (11.5-15.3) 06/28/22 12:10 Hct 40.2 % (37.0-47.0) 06/28/22 12:10 MCV 90.5 fl (81-99) 06/28/22 12:10 MCH 31.1 pg (28.0-34.0) 06/28/22 12:10 MCHC 34.3 g/dL (30.0-36.0) 06/28/22 12:10 RDW 17.1 % (12.1-15.1) H 06/28/22 12:10 Plt Count 338 10^3/cmm (130-400) 06/28/22 12:10 MPV 9.0 fL (7.4-10.4) 06/28/22 12:10 Neut % (Auto) 79.1 % 06/28/22 12:10 Lymph % (Auto) 10.2 % 06/28/22 12:10 [place] % (Auto) 9.6 % 06/28/22 12:10 Eos % (Auto) 0.4 % 06/28/22 12:10 Baso % (Auto) 0.2 % 06/28/22 12:10 Neut # (Auto) 6.69 10^3/uL (1.8-7.7) 06/28/22 12:10 Lymph # (Auto) 0.9 10^3/uL (0.8-4.8) 06/28/22 12:10 [place] # (Auto) 0.8 10^3/uL (0.2-0.9) 06/28/22 12:10 Eos # (Auto) 0.0 10^3/uL (0.0-0.8) 06/28/22 12:10 Baso # (Auto) 0.0 10^3/uL (0.0-0.1) 06/28/22 12:10 Nucleated RBC % (auto) 0 % 06/28/22 12:10 Nucleated RBCs # 0.0 /100WBC 06/28/22 12:10 PT 18.30 SECONDS (12.1-14.9) H 06/28/22 12:10 INR 1.49 (0.8-1.2) H 06/28/22 12:10 Sodium 136 mmol/L (136-145) 06/28/22 12:10 Potassium 1.7 mmol/L (3.5-5.1) L* 06/28/22 14:37 Chloride 99 mmol/L (98-107) 06/28/22 12:10 Carbon Dioxide 24 mmol/L (22-29) 06/28/22 12:10 Anion Gap 14.8 (5-19) 06/28/22 12:10 BUN 8 mg/dL (8-23) 06/28/22 12:10 Creatinine 0.7 mg/dL (0.5-0.9) 06/28/22 12:10 GFR Calculation Not Reportable 06/28/22 12:10 Glucose 147 mg/dL (65-115) H 06/28/22 12:10 Calculated Osmolality 283 mOsm/kg (285-295) L 06/28/22 12:10 Calcium 7.9 mg/dL (8.5-10.5) L 06/28/22 12:10 Phosphorus 2.7 mg/dL (2.5-4.5) 06/28/22 14:37 Magnesium 2.0 mg/dL (1.7-2.3) 06/28/22 12:10 Iron 71 ug/dL (37-145) 06/28/22 12:10 TIBC 143 mcg/dl 06/28/22 12:10 % Saturation 49.6 % (20-50) 06/28/22 12:10 Unsat Iron Binding 72 ug/dL (112-347) L 06/28/22 12:10 Total Bilirubin 1.5 mg/dL (0.15-1.2) H 06/28/22 12:10 AST 97 U/L (0-32) H 06/28/22 12:10 ALT 34 U/L (0-33) H 06/28/22 12:10 Alkaline Phosphatase 206 U/L (35-105) H 06/28/22 12:10 Troponin T Baseline 65 ng/L (0-10) H 06/28/22 12:10 Troponin T 120 Minute 58.55 ng/L (0-10) H 06/28/22 14:37 Delta Troponin T -6.45 ABS# (0-10) L 06/28/22 14:37 Total Protein 4.8 g/dL (6.6-8.7) L 06/28/22 12:10 Albumin 2.8 g/dL (3.5-5.2) L 06/28/22 12:10 Globulin 2.0 g/dL (1.3-4.6) 06/28/22 12:10 Folate 6.1 ng/mL (4.8-37.3) 06/28/22 12:10 TSH 2.29 uIU/mL (0.27-4.20) 06/28/22 12:10 Hepatitis A IgM Ab Non-reactive (Nonreactive) 06/28/22 12:10 Hep Bs Antigen Non-reactive (Nonreactive) 06/28/22 12:10 Hep Bs Antibody 4.1 (11.5-1000) L 06/28/22 12:10 Hep B Core Total Ab Non-reactive (Nonreactive) 06/28/22 12:10 Hepatitis C Antibody Non-reactive (Nonreactive) 06/28/22 12:10 Discharge Plan Discharge Patient Disposition: Placed in Observation Admit Provider: Fili Moreno Clinical Impression: Chest pain, HTN (hypertension), Atrial fibrillation, CAD (coronary artery disease), Acute hypokalemia Discharge Diet: Cardiac Discharge Activity: Resume usual activity and Increase activity as tolerated Coding Level of Care Code ED Wire Frame Lampshade Maker for Álvaro Fwd Exam Detailed
[2022-06-28 12:29] LABS: Basophils % 0.2 %; Eosinophils % 0.4 %; Hematocrit 40.2 % (37.0-47.0); Hemoglobin 13.8 g/dL (11.5-15.3); Lymphocytes # 0.9 10^3/uL (0.8-4.8); Lymphocytes % 10.2 %; Mean Corpuscular HGB Conc 34.3 g/dL (30.0-36.0); Mean Corpuscular Hemoglobin 31.1 pg (28.0-34.0); Mean Corpuscular Volume 90.5 fl (81-99); Monocytes # 0.8 10^3/uL (0.2-0.9); Monocytes % 9.6 %; Neutrophils # 6.69 10^3/uL (1.8-7.7); Neutrophils % 79.1 %; Nucleated Red Blood Cells % 0 %; Platelet Count 338 10^3/cmm (130-400); Red Blood Count 4.44 10^6/uL (4.1-5.3); Red Cell Distribution Width 17.1 % (12.1-15.1); White Blood Count 8.5 10^3/uL (4.0-10.0)
[2022-06-28 12:47] LABS: Troponin(5th) Baseline 65 ng/L (0-10)
[2022-06-28 12:48] LABS: Alanine Aminotransferase 34 U/L (0-33); Albumin Level 2.8 g/dL (3.5-5.2); Alkaline Phosphatase 206 U/L (35-105); Anion Gap 14.8 (5-19); Aspartate Amino Transferase 97 U/L (0-32); Blood Urea Nitrogen 8 mg/dL (8-23); Calcium 7.9 mg/dL (8.5-10.5); Carbon Dioxide 24 mmol/L (22-29); Chloride 99 mmol/L (98-107); Glucose 147 mg/dL (65-115); Osmolality Calculated 283 mOsm/kg (285-295); Sodium 136 mmol/L (136-145); Total Bilirubin 1.5 mg/dL (0.15-1.2); Total Protein 4.8 g/dL (6.6-8.7)
[2022-06-28 12:54] LABS: INR 1.49 (0.8-1.2)
[2022-06-28 13:00] LABS: Potassium 1.8 mmol/L (3.5-5.1)
--- NOTE | 2022-06-28 13:12 | USR_ITS ---
PROCEDURE INFORMATION: Exam: US Abdomen, Limited; Right Upper Quadrant Exam date and time: 06/28/2022 1:30 PM Age: 76 years old Clinical indication: Abdominal pain; Generalized; Additional info: Elevated lfts/ t bili TECHNIQUE: Imaging protocol: Real time ultrasound of the abdomen with image documentation. Limited exam focused on the right upper quadrant. COMPARISON: No relevant prior studies available. FINDINGS: Study is severely limited due to body habitus. Liver: The liver is not enlarged but is somewhat heterogeneous and echogenic in texture, nonspecific and may in part be due to fatty infiltration. Gallbladder: Gallbladder has been removed.. Biliary ducts: There is mild associated dilatation of common bile duct measuring 8 mm. Pancreas: Pancreas is poorly visualized and cannot be assessed. Right kidney: Normal. No mass. No hydronephrosis. Intraperitoneal space: There is no ascites detected. US/US gall bladder [id number] IMPRESSION: 1. Severely limited assessment of the liver and pancreas. 2. Prior cholecystectomy.
--- NOTE | 2022-06-28 14:19 | ECG_ITS ---
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 Measurements Intervals [place] Rate: 70 P: 0 [place]: 0 QRS: -2 QRSD: 118 T: -60 QT: 369 QTc: 401 Interpretive Statements ATRIAL FIBRILLATION WITH ABERRANT CONDUCTION OR VENTRICULAR PREMATURE COMPLEXES ANTERIOR MYOCARDIAL INFARCTION , PROBABLY OLD [40+ ms Q WAVE AND/OR ST/T ABNORMALITY IN V3/V4] Compared to ECG 06/28/2022 12:46:44 Ventricular premature complex(es) now present Aberrant conduction of supraventricular beat(s) now present Myocardial infarct finding now present T-wave abnormality no longer present Electronically Signed On 06-28-2022 20:37:38 SUPERVISOR SLATE SPLITTING by Andrew Guerrero M.D. [id number]
[2022-06-28] MEDS: potassium chloride oral liq 20 mEq/15 mL UDC 40 MEQ PO (15:03)
[2022-06-28 15:31] LABS: Troponin 5 2HR 58.55 ng/L (0-10)
[2022-06-28 15:38] LABS: Troponin 5 2HR Delta -6.45 ABS# (0-10)
[2022-06-28] MEDS: potassium chloride premix 100 ML 25 MEQ IV ×2 (16:17→21:12)
[2022-06-28] MEDS: sodium chloride 0.9% 1,000 ML 999 ML IV (16:17)
[2022-06-28 16:38] LABS: Potassium 1.7 mmol/L (3.5-5.1)
--- NOTE | 2022-06-28 17:35 | CTR_ITS ---
PROCEDURE INFORMATION: Exam: CT Abdomen And Pelvis Without Contrast Exam date and time: 06/28/2022 7:51 PM Age: 76 years old Clinical indication: Condition or disease; Intestinal condition; Other: Chronic diarrhea TECHNIQUE: Imaging protocol: Computed tomography of the abdomen and pelvis without contrast. Sagittal and coronal reformatted images were created and reviewed. Radiation optimization: All CT scans at this facility use at least one of these dose optimization techniques: automated exposure control; mA and/or kV adjustment per patient size (includes targeted exams where dose is matched to clinical indication); or iterative reconstruction. COMPARISON: US CV. echo complete* [id number] 06/28/2022 1:30 PM RADIATION DOSE METRICS: Total DLP (mGy-cm): 1069.05 FINDINGS: Lungs: No focal consolidation. No pulmonary edema. There is linear scarring in the right and left lower lobes. Pleural spaces: No pleural effusion. Heart: Visualized portions of the heart are mildly enlarged. Coronary arteries: Mild atherosclerotic calcification in the visualized coronary arteries. Liver: The liver is unremarkable. Gallbladder and bile ducts: Patient has had a previous cholecystectomy. Dilatation of the biliary ducts, not unexpected in a patient who has had a prior cholecystectomy. Pancreas: Moderate atrophy of the pancreatic parenchyma. No pancreatic ductal dilatation. Spleen: The spleen is unremarkable. Adrenal glands: The right and left adrenal glands are unremarkable. Kidneys and ureters: Indeterminate hyperdense focus in the right kidney. Hounsfield units show density greater than expected for simple fluid. This measures 1.0 x 1.0 cm (series 3, image 44). Simple exophytic cyst in the left kidney measuring 4.9 cm. The right and left ureters are unremarkable. Stomach and bowel: Numerous diverticula throughout the entire colon. There is mild to moderate wall thickening with surrounding inflammatory change of the entire colon. Numerous diverticula throughout the entire colon. No acute abnormality in the small bowel. No acute abnormality in the stomach. Appendix: Appendix not definitely visualized. No inflammatory changes in the pericecal region however. Intraperitoneal space: No free intraperitoneal air. No ascites. No loculated fluid collections to suggest an abscess. Vasculature: Moderate atherosclerotic changes in the visualized arteries. No evidence for aortic aneurysm. Lymph nodes: No lymphadenopathy. Urinary bladder: The bladder is unremarkable. Reproductive: Patient has had a previous hysterectomy. The ovaries are not definitely visualized, not an expected in a postmenopausal female. This may be due to ovarian atrophy. Alternatively, the patient may have had a previous bilateral oophorectomy. Bones/joints: Degenerative changes in the spine, sacroiliac joints, and hips. Bones are diffusely osteopenic. Grade 1 anterolisthesis of L3 on L4 and grade 2 anterolisthesis of L4 on L5, likely due to facet degenerative change. Moderate spinal canal stenosis at T8-9, L2-L3, L3-L4, and L4-L5. Mild spinal canal stenosis at L5-S1. Multilevel foraminal stenosis of varying severity in the visualized spine. Soft tissues: No acute abnormality in the extra-abdominal soft tissues. CT/CT abdomen pelvis wo con [id number] IMPRESSION: 1. Findings consistent with mild to moderate pancolitis. Findings may be infectious or inflammatory in nature, or could suggest pseudomembranous colitis in the appropriate clinical situation. Recommend clinical correlation. 2. Indeterminate hyperdense focus in the right kidney. 3. Colonic diverticulosis. No evidence for diverticulitis. 4. Incidental/nonacute findings are listed in the report. COMMENTS: Consistent with the [employer]'s Incidental Findings Committee white paper (J Am Alli Radiol 2018): Any incidental renal lesion less than 1 cm or classified as too small to characterize, or any incidental cystic renal lesion characterized as simple-appearing, is likely benign. No follow-up imaging is recommended for these lesions per consensus recommendations based on imaging criteria.
[2022-06-28 17:40] LABS: Phosphorus 2.7 mg/dL (2.5-4.5)
--- NOTE | 2022-06-28 17:43 | PM.HP ---
Providers/Chief Complaint Admitting Physician: Fili Moreno MD Primary Care Provider: Anthony George MD Chief Complaint: chest pain, dizziness History of Present Illness Loreta Goode is a 76 year old female with past medical history of hypertension, atrial fibrillation post PCI with stress test within last 1 year showing prior infarct in LAD/circumflex artery territory with small tammy-infarct ischemia area which is being medically managed with daily Nitropatch presented to the ER today because of chest pain. Patient states she forgot to put her nitrate patch yesterday because of chronic diarrhea which has been going on for last 6 weeks and started having chest pain. Chest pain was relieved 20 minutes after using the Nitropatch. Patient states she has been having diarrhea for last 6 weeks since Thanksgiving which at first they thought was secondary to stress related to passing away of her . She has followed up with a primary care provider for the same as an outpatient and had a bowel culture which was negative and hence was being treated by Imodium without any help. In the ER she was found to have a potassium level of less than 2 along with extreme weakness hence hospitalist service was contacted for admission. Examination patient lying comfortably in bed stating she is fairly weak, feeling dehydrated. Denies any abdominal pain, melena, nausea, vomiting but does complain of decreased appetite. Review of Systems General: Reports: 10 or more systems reviewed and unremarkable except in HPI and below Const: Denies: fever(s), chills, body aches, change in appetite, change in weight, malaise, night sweats, diaphoresis, change in sleep pattern, daytime sleepiness or snoring Eyes: Denies: change in vision, blurry vision, photophobia, eye discomfort or eye discharge ENMT: Denies: throat pain, enlarged tonsils, hoarseness, mouth pain, oral sores, dry mouth, tinnitus, nasal congestion or post nasal drip Card: Denies: chest pain, palpitations, irregular heart rhythm, edema, swelling of feet/ankles, lightheadedness, syncope, pre-syncope, dyspnea on exertion, orthopnea, leg pain with exertion or acrocyanosis Resp: Denies: dyspnea, productive cough, non-productive cough, wheezing, stridor, pain on inspiration, change in phlegm color, hemoptysis or chest congestion GI: Denies: abdominal pain, nausea, vomiting, hematemesis, coffee ground emesis, dysphagia, heartburn, diarrhea, constipation, bloating, GI cramping, change in bowel habits, pain on defecation, hematochezia or melena : Denies: flank pain, dysuria, urinary frequency, urinary urgency, urinary hesitancy, nocturia or hematuria Musc: Denies: neck pain, back pain, extremity pain, joint pain, joint swelling, joint redness, joint stiffness or limited range of motion Neuro: Denies: headache(s), numbness in extremities, weakness in extremities, sensory changes, lack of coordination, difficulty walking, frequent falls, dizziness, vertigo, confusion, Slurred speech present, difficulty communicating thoughts or seizure-like activity Psych: Denies: anxiety, depression, mood swings, panic attacks, hopelessness or irritability Endo: Denies: polyuria, polydipsia, tired all the time, cold intolerance, excessive sweating, flushing or heat intolerance Jeff/Lymph: Denies: easy bruising or easy bleeding All/Imm: Denies: tongue swelling, facial swelling or acute wheezing Medications/Allergies Home Medications Medication Instructions Recorded Confirmed Last Taken Type canagliflozin 100 mg tablet 100 mg PO DAILY 08/11/20 06/28/22 06/27/22 History duloxetine 60 mg capsule,delayed 60 mg PO DAILY 08/11/20 06/28/22 06/27/22 History release furosemide 20 mg tablet 20 mg PO DAILY 08/11/20 06/28/22 06/27/22 History insulin glargine 100 unit/mL (3 38 unit SUBCUT DAILY 08/11/20 06/28/22 06/27/22 History mL) subcutaneous pen (Lantus Solostar U-100 Insulin) nitroglycerin 0.4 mg sublingual 0.4 mg sublingual Q5M PRN Chest 08/11/20 06/28/22 Unknown History tablet Pain potassium chloride 10 mEq 20 meq PO DAILY 08/11/20 06/28/22 06/27/22 History tablet,extended release pravastatin 80 mg tablet 80 mg PO DAILY 08/11/20 06/28/22 06/27/22 History cinnamon bark 500 mg capsule 500 mg PO DAILY 07/13/21 06/28/22 06/27/22 History (Cinnamon) nitroglycerin 0.2 mg/hr 1 patch transdermal DAILY 07/13/21 06/28/22 06/27/22 History transdermal 24 hour patch diclofenac epolamine 1.3 % 1 patch topical Q12H 01/22/22 06/28/22 Unknown History transdermal 12 hour patch gabapentin 300 mg capsule 300 mg PO TID 06/28/22 06/28/22 06/27/22 History hydrocodone 10 mg-acetaminophen 1 tab PO Q8H PRN Pain 06/28/22 06/28/22 Unknown History 325 mg tablet levothyroxine 75 mcg tablet 75 mcg PO DAILY 06/28/22 06/28/22 06/27/22 History metoprolol succinate 25 mg 25 mg PO QPM 06/28/22 06/28/22 06/27/22 History tablet,extended release 24 hr metoprolol succinate 50 mg 50 mg PO DAILY 06/28/22 06/28/22 06/27/22 History tablet,extended release 24 hr warfarin 4 mg tablet See Rx Instructions .Route .COMPLEX 06/28/22 06/28/22 06/27/22 History Allergies Allergy/AdvReac Type Severity Reaction Status Date / Time Penicillins Allergy ADR-Vomitin Verified 01/22/22 09:58 g PFSH Acute PFSH: Medical History (Updated 06/28/22 @ 17:54 by Fili Moreno MD) Atrial fibrillation CAD (coronary artery disease) CHF (congestive heart failure) Dementia Depression MIKHAIL (generalized anxiety disorder) GERD (gastroesophageal reflux disease) HTN (hypertension) Lumbar radiculopathy Neuropathy Obstructive sleep apnea Right above-knee amputee 2000 Surgical History Hx of cholecystectomy Hx of hysterectomy Hx of thyroidectomy 1998 Family History Other Diabetes Hypertension Myocardial infarction Social History Smoking and tobacco status: never smoked Alcohol intake: never Vitals/I&O/Wt Last Vital Signs Temp 98.1 F 06/28/22 11:31 Pulse 73 06/28/22 15:30 Resp 19 H 06/28/22 13:30 BP 125/84 06/28/22 16:00 Pulse Ox 93 06/28/22 15:30 O2 Del Method 06/28/22 11:31 Weight last 48 hrs Weight 90.718 kg Physical Exam Narrative: General: No acute distress, AO x3, dehydrated, HEENT: PERRLA, pupils bilaterally equal and reactive Chest: Normal vesicular breath sounds, no added sounds, equal good air entry bilaterally CVS: S1-S2 regular, no murmurs, no tachycardia, no gallops, no rubs Abdomen: Soft, nontender, no organomegaly, bowel sounds present Neuro: No focal deficits, no facial deformity, AO x3, power 5/5 in all limbs Data 06/28/22 12:10 06/28/22 14:37 A&P Assessment and plan (1) Chronic diarrhea: Being followed up as an out patient. Stool BM culture as an outpatient was negative. Stool studies to rule out C. difficile, enteric bacterial and parasite panel. CT abdomen pelvis to rule out mass or constipation. Normal saline with 40 mg of potassium at 75 cc/h. Watch for fluid overload. (2) Unstable angina: Stress test in August 2020 showed prior infarct in the LAD/circumflex artery territory with small area of tammy-infarct ischemia. Start on aspirin. Continue with atorvastatin. Continue with beta-reymundo. Continue with home dose of nitrate for now. Echocardiogram done in April shows an EF of 50% without regional wall motion normality. Check A1c, lipid panel, limited echocardiogram. Troponin cycle Will consult cardiology for possible cardiac angiogram. Discussed with family and they are agreeable. (3) Acute hypokalemia: Most likely secondary to chronic diarrhea. Replete with 120 mg of oral potassium along with IV potassium as above. Monitor potassium every 8 hourly. (4) CAD (coronary artery disease): (5) Atrial fibrillation: Currently rate controlled. Continue with home dose of metoprolol. Continue with home dose of Coumadin. Monitor INR daily. Currently subtherapeutic most likely secondary to diarrhea. We will continue to monitor. (6) HTN (hypertension): (7) Transaminitis: Most likely secondary to diarrhea and dehydration. Patient has history of cholecystectomy. Appreciate ultrasound gallbladder. Check hepatitis panel. Continued IV hydration. Monitor CMP daily. If continues to worsen we will plan for MRCP. (8) Positive cardiac stress test: Plan Full code. Soft mechanical diet. Protonix for PUD prophylaxis Heparin 5000 every 12 hourly for DVT prophylaxis. Attestations Medical Necessity Statement*: Admission for more than 2 midnights for management of hypokalemia secondary to chronic diarrhea for last 6 weeks, unstable angina and history of positive stress test Time Spent in Patient Care: Greater than 35 minutes Coding Level of Care Code Acute Pipe Wrapping Machine Operator for Chg Fwd Diagnoses Chronic diarrhea K52.9 Unstable angina I20.0 Acute hypokalemia E87.6 CAD (coronary artery disease) I25.10 Atrial fibrillation I48.91 HTN (hypertension) I10 Transaminitis R74.01 Positive cardiac stress test R94.39
[2022-06-28] MEDS: potassium chloride ER 20 mEq Tablet 120 MEQ PO (17:46)
[2022-06-28 18:24] LABS: Troponin 5 6HR 56.38 ng/L (0-10)
[2022-06-28 18:25] LABS: Troponin 5 6HR Delta -8.62 ng/L (0-12)
[2022-06-28 19:15] LABS: Iron 71 ug/dL (37-145); Percent Saturation 49.6 % (20-50); Thyroid Stimulating Hormone 2.29 uIU/mL (0.27-4.20); Total Iron Binding Capacity 143 mcg/dl; Unsaturated Iron Binding 72 ug/dL (112-347)
[2022-06-28 19:26] LABS: Folate Level 6.1 ng/mL (4.8-37.3)
[2022-06-28 20:55] LABS: Hepatitis A Antibody IgM Non-Reactive (Nonreactive); Hepatitis B Core AB, Total Non-Reactive (Nonreactive); Hepatitis B Surface AB 4.1 (11.5-1000); Hepatitis B Surface Antigen Non-Reactive (Nonreactive); Hepatitis C Virus Antibody Non-Reactive (Nonreactive)
[2022-06-28 21:09] LABS: Glucose Point of Care 120 mg/dL (70-110)
[2022-06-28] MEDS: sodium chlor 0.9% + KCl 20 mEq 20 MEQ/1,000 ML BAG 100 MEQ IV (21:12)
[2022-06-28] MEDS: metoprolol succinate ER (24 HR) 25 mg Tablet PO (21:14)
[2022-06-28] MEDS: gabapentin 300 mg Capsule PO (21:14)
[2022-06-28] MEDS: pantoprazole 40 mg SDV IVP (21:14)
[2022-06-28] MEDS: metroNIDAZOLE IV 500 MG/100 ML PREMIX 100 MG IV (22:04)
[2022-06-28 22:27] LABS: Amphetamines Screen Urine Negative (Negative); Barbiturates Screen Urine Negative (Negative); Benzodiazepines Screen Urine Negative (Negative); Cocaine Screen Urine Negative (Negative); Opiate Screen Urine Positive (Negative); PCP Screen Urine Negative (Negative); THC Screen Urine Negative (Negative)
[2022-06-28 22:29] LABS: Urine Appearance Clear (CLEAR); Urine Color Yellow (Yellow); pH Urine 6 (5-7)
[2022-06-28 22:30] LABS: Add Urine Culture? No; Add Urine Microscopic? YES; Bilirubin Urine Neg (Negative); Blood Urine Neg (Negative); Coarse Granular Casts Urine 0-2 /lpf; Glucose Urine UA 2+ (Normal); Ketones Urine Negative (Negative); Leukocyte Esterase Urine Negative (Negative); Nitrate Urine Negative (Negative); Protein Urine Trace (Negative); Renal Epithelial Cells Urine 0-2 /hpf; Urobilinogen Urine Norm (Negative); WBC Urine 0-4 /hpf (0-5)
[2022-06-28] MEDS: ciprofloxacin 200 MG/100 ML PREMIX 100 MG IV (22:56)
[2022-06-29] VITALS (60 sets, daily range): BP systolic 77–107; BP diastolic 44–72; PULSE 75–102; RESP 1–31; TEMP 36.5–37.3; O2SAT 61–95
[2022-06-29] MEDS: HYDROcodone-acetaminophen 10-325 mg Tablet 1 TAB PO ×2 (00:34→20:21)
[2022-06-29] MEDS: metroNIDAZOLE IV 500 MG/100 ML PREMIX 100 MG IV ×3 (04:10→20:22)
[2022-06-29] MEDS: sodium chlor 0.9% + KCl 20 mEq 20 MEQ/1,000 ML BAG 100 MEQ IV ×2 (04:11→11:39)
[2022-06-29 06:09] LABS: Glucose Point of Care 117 mg/dL (70-110)
--- NOTE | 2022-06-29 06:48 | P.CONIM_ITS ---
Providers/Reason For Consult Consulting Physician/Specialty*: Blade Morales MD/ Cardiology Reason for Consult*: Chest pain Requesting Physician: Dr Moreno Attending Physician: Fili Moreno MD Primary Care Provider: Anthony George MD History of Present Illness History of Present Illness Loreta Goode is a 76 year old female with past medical history of atrial fibrillation on Coumadin, hypertension who is presented with chest pain. According to patient she gets daily chest pains however recently has worsened. On day of presentation she had a prolonged episode of chest discomfort which brought her to the hospital. Her troponins have not increased. For the last 6 weeks she has been having diarrhea. Her potassium was 1.7 at presentation. She was also dehydrated. Patient had stress test last year that showed prior infarct in the LAD and circumflex artery territory with small tammy-infarct ischemia. EKG does not show ischemic changes and has rate controlled atrial fibrillation. Review of Systems General: Reports: 10 or more systems reviewed and unremarkable except in HPI and below Const: Denies: fever(s), chills, body aches, change in appetite, change in weight, malaise, night sweats, diaphoresis, change in sleep pattern, daytime sleepiness or snoring Eyes: Denies: change in vision, blurry vision, photophobia, eye discomfort or eye discharge ENMT: Denies: throat pain, enlarged tonsils, hoarseness, mouth pain, oral sores, dry mouth, tinnitus, nasal congestion or post nasal drip Card: Denies: chest pain, palpitations, irregular heart rhythm, edema, swelling of feet/ankles, lightheadedness, syncope, pre-syncope, dyspnea on exertion, orthopnea, leg pain with exertion or acrocyanosis Resp: Denies: dyspnea, productive cough, non-productive cough, wheezing, stridor, pain on inspiration, change in phlegm color, hemoptysis or chest congestion GI: Denies: abdominal pain, nausea, vomiting, hematemesis, coffee ground emesis, dysphagia, heartburn, diarrhea, constipation, bloating, GI cramping, change in bowel habits, pain on defecation, hematochezia or melena : Denies: flank pain, dysuria, urinary frequency, urinary urgency, urinary hesitancy, nocturia or hematuria Musc: Denies: neck pain, back pain, extremity pain, joint pain, joint swelling, joint redness, joint stiffness or limited range of motion Neuro: Denies: headache(s), numbness in extremities, weakness in extremities, sensory changes, lack of coordination, difficulty walking, frequent falls, dizziness, vertigo, confusion, Slurred speech present, difficulty communicating thoughts or seizure-like activity Psych: Denies: anxiety, depression, mood swings, panic attacks, hopelessness or irritability Endo: Denies: polyuria, polydipsia, tired all the time, cold intolerance, excessive sweating, flushing or heat intolerance Jeff/Lymph: Denies: easy bruising or easy bleeding All/Imm: Denies: tongue swelling, facial swelling or acute wheezing Medications/Allergies Home Medications Medication Instructions Recorded Confirmed Last Taken Type canagliflozin 100 mg tablet 100 mg PO DAILY 08/11/20 06/28/22 06/27/22 History duloxetine 60 mg capsule,delayed 60 mg PO DAILY 08/11/20 06/28/22 06/27/22 History release furosemide 20 mg tablet 20 mg PO DAILY 08/11/20 06/28/22 06/27/22 History insulin glargine 100 unit/mL (3 38 unit SUBCUT DAILY 08/11/20 06/28/22 06/27/22 History mL) subcutaneous pen (Lantus Solostar U-100 Insulin) nitroglycerin 0.4 mg sublingual 0.4 mg sublingual Q5M PRN Chest 08/11/20 06/28/22 Unknown History tablet Pain potassium chloride 10 mEq 20 meq PO DAILY 08/11/20 06/28/22 06/27/22 History tablet,extended release pravastatin 80 mg tablet 80 mg PO DAILY 08/11/20 06/28/22 06/27/22 History cinnamon bark 500 mg capsule 500 mg PO DAILY 07/13/21 06/28/22 06/27/22 History (Cinnamon) nitroglycerin 0.2 mg/hr 1 patch transdermal DAILY 07/13/21 06/28/22 06/27/22 History transdermal 24 hour patch diclofenac epolamine 1.3 % 1 patch topical Q12H 01/22/22 06/28/22 Unknown History transdermal 12 hour patch gabapentin 300 mg capsule 300 mg PO TID 06/28/22 06/28/22 06/27/22 History hydrocodone 10 mg-acetaminophen 1 tab PO Q8H PRN Pain 06/28/22 06/28/22 Unknown History 325 mg tablet levothyroxine 75 mcg tablet 75 mcg PO DAILY 06/28/22 06/28/22 06/27/22 History metoprolol succinate 25 mg 25 mg PO QPM 06/28/22 06/28/22 06/27/22 History tablet,extended release 24 hr metoprolol succinate 50 mg 50 mg PO DAILY 06/28/22 06/28/22 06/27/22 History tablet,extended release 24 hr warfarin 4 mg tablet See Rx Instructions .Route .COMPLEX 06/28/22 06/28/22 06/27/22 History Allergies Allergy/AdvReac Type Severity Reaction Status Date / Time Penicillins Allergy ADR-Vomitin Verified 01/22/22 09:58 g Current Medications Generic Name Dose Route Start Last Admin Trade Name Freq PRN Reason Stop Dose Admin Hydrocodone Bitart/Acetaminophen 1 tab 06/28/22 18:17 06/29/22 00:34 Hydrocodone-Acetaminophen 10-325 Mg Tablet PO 1 tab Q8H PRN Administration Pain Gabapentin 300 mg 06/28/22 21:00 06/28/22 21:14 Gabapentin 300 Mg Capsule PO 300 mg TID MAGALI Administration Potassium Chloride/Sodium Chloride 20 meq in 1,000 mls @ 100 mls/hr 06/28/22 18:17 06/29/22 04:11 Sodium Chlor 0.9% + Kcl 20 Meq IV 100 mls/hr .Q10H MAGALI Administration Ciprofloxacin/Dextrose 200 mg in 100 mls @ 100 mls/hr 06/28/22 22:00 06/28/22 23:48 Cipro IV Infused Q12H MAGALI Infusion Protocol Metronidazole 500 mg in 100 mls @ 100 mls/hr 06/28/22 21:00 06/29/22 05:33 Flagyl Iv IV Infused Q8H MAGALI Infusion Protocol Insulin Human Lispro 0 unit 06/28/22 21:00 06/28/22 21:14 Insulin Lispro 100 Unit/1 Ml SUBCUT Not Given WM&BEDTIME MAGALI Protocol Pantoprazole Sodium 40 mg 06/28/22 18:17 06/28/22 21:14 Pantoprazole 40 Mg Sdv IVP 40 mg Q24H MAGALI Administration PFSH Acute PFSH: Medical History Atrial fibrillation CAD (coronary artery disease) CHF (congestive heart failure) Dementia Depression MIKHAIL (generalized anxiety disorder) GERD (gastroesophageal reflux disease) HTN (hypertension) Lumbar radiculopathy Neuropathy Obstructive sleep apnea Right above-knee amputee 2000 Surgical History Hx of cholecystectomy Hx of hysterectomy Hx of thyroidectomy 1998 Family History Other Diabetes Hypertension Myocardial infarction Social History Smoking and tobacco status: never smoked Alcohol intake: never Vitals/I&O/Wt Last Vital Signs Temp 97.7 F 06/29/22 04:29 Pulse 88 06/29/22 06:31 Resp 19 H 06/29/22 04:29 BP 77/44 06/29/22 04:29 Pulse Ox 92 06/29/22 04:29 O2 Del Method 06/29/22 00:06 06/28/22 06/28/22 06/29/22 14:59 22:59 06:59 Intake Total 1440 / 1440 998.333 / 2438.333 Balance 1440 / 1440 998.333 / 2438.333 Weight last 48 hrs Weight 216 lb 4.8 oz Weight 200 lb Physical Exam Narrative: GENERAL: Patient is alert, awake and oriented x3. [] NECK: No jugular vein distension. [] HEENT: No cyanosis. No icterus. No pallor. [] HEART: Irregularly irregular LUNGS: Clear to auscultate bilaterally. [] ABDOMEN: Soft, nontender and nondistended. Positive bowel sounds. No guarding, rebound or tenderness. [] CENTRAL NERVOUS SYSTEM: Grossly nonfocal. [] EXTREMITIES: Lower extremity with 1+ edema. Data 06/28/22 12:10 06/28/22 14:37 Micro: Microbiology 06/28/22 22:15 Blood Culture - Preliminary Blood SPECIMEN COLLECTED 06/28/22 22:20 Blood Culture - Preliminary Blood SPECIMEN COLLECTED 06/28/22 16:06 Legionella Urinary Antigen - Final Urine,Voided 06/28/22 20:20 Stool Lactoferrin - Final Stool Occult Blood (FIT) - Final A&P Assessment and plan (1) Chest pain: (2) Chronic diarrhea: (3) CHF (congestive heart failure): (4) HTN (hypertension): (5) Atrial fibrillation: Plan Patient had worsening chest pain symptoms that brought him to the hospital. She is using nitro patches. We will proceed with coronary angiogram with possible percutaneous coronary intervention risks and benefits of the procedure have been discussed with the patient. Hold Coumadin in preparation for coronary angiogram N.p.o. past midnight. Replace electrolytes as needed. Thank you for involving us with care of this patient. We will continue to follow. Please call with questions. Consult Attestations Medical Necessity Statement: Care expected to cross 2 midnights. Coding Level of Care Code Acute Big Data Platform Architect for Álvaro Jones Diagnoses Chest pain R07.9 Chronic diarrhea K52.9 CHF (congestive heart failure) I50.9 HTN (hypertension) I10 Atrial fibrillation I48.91
[2022-06-29 07:19] LABS: Basophils % 0.3 %; Eosinophils # 0.1 10^3/uL (0.0-0.8); Eosinophils % 1.2 %; Hematocrit 42.9 % (37.0-47.0); Lymphocytes % 17.4 %; Mean Corpuscular HGB Conc 32.6 g/dL (30.0-36.0); Mean Corpuscular Hemoglobin 31.4 pg (28.0-34.0); Mean Corpuscular Volume 96.2 fl (81-99); Mean Platelet Volume 9.8 fL (7.4-10.4); Monocytes # 1.1 10^3/uL (0.2-0.9); Monocytes % 17.9 %; Neutrophils # 3.71 10^3/uL (1.8-7.7); Neutrophils % 62.7 %; Nucleated Red Blood Cells % 0 %; Platelet Count 271 10^3/cmm (130-400); Red Blood Count 4.46 10^6/uL (4.1-5.3); Red Cell Distribution Width 18.5 % (12.1-15.1); White Blood Count 5.9 10^3/uL (4.0-10.0)
[2022-06-29 07:47] LABS: Estmated Average Glucose 131; Hemoglobin A1C 6.2 % (4.0-6.0)
[2022-06-29] MEDS: atorvastatin 40 mg Tablet 20 MG PO (09:06)
[2022-06-29] MEDS: gabapentin 300 mg Capsule PO ×3 (09:07→20:21)
[2022-06-29] MEDS: levothyroxine 75 mcg Tablet PO (09:07)
[2022-06-29] MEDS: duloxetine 60 mg Capsule PO (09:08)
[2022-06-29 10:21] LABS: Alanine Aminotransferase 27 U/L (0-33); Albumin Level 2.2 g/dL (3.5-5.2); Alkaline Phosphatase 147 U/L (35-105); Anion Gap 10.1 (5-19); Aspartate Amino Transferase 41 U/L (0-32); Blood Urea Nitrogen 7 mg/dL (8-23); Carbon Dioxide 24 mmol/L (22-29); Chloride 109 mmol/L (98-107); Cholesterol 93 mg/dL (0-200); Globulin 1.8 g/dL (1.3-4.6); Glucose 174 mg/dL (65-115); HDL Cholesterol 31 mg/dL (60-100); LDL Cholesterol Calculated 47 mg/dL (50-129); Magnesium 1.7 mg/dL (1.7-2.3); Osmolality Calculated 292 mOsm/kg (285-295); Phosphorus 1.9 mg/dL (2.5-4.5); Potassium 3.1 mmol/L (3.5-5.1); Sodium 140 mmol/L (136-145); Total Bilirubin 0.9 mg/dL (0.15-1.2); Triglycerides 75 mg/dL (0-150); VLDL Cholestrol Calculation 15 mg/dL (0-30)
--- NOTE | 2022-06-29 10:33 | PM.PN ---
Subjective Subjective: No acute events overnight. Patient remains in hemodynamically stable and comfortable. There is a blood pressure charting of 77 systolic early in the morning today which is as per the nurse and at her. Patient is awake and alert during examination with family at bedside. Continues to have diarrhea. Denies any nausea or vomiting. Complaining of weakness and feeling exhausted. Denies any further chest pain. Vitals/I&O/Wt Last Vital Signs Temp 97.7 F 06/29/22 04:29 Pulse 88 06/29/22 06:31 Resp 19 H 06/29/22 04:29 BP 77/44 06/29/22 04:29 Pulse Ox 92 06/29/22 04:29 O2 Del Method 06/29/22 00:06 06/28/22 06/29/22 06/29/22 22:59 06:59 14:59 Intake Total 1440 / 1440 998.333 / 2438.333 Balance 1440 / 1440 998.333 / 2438.333 Weight last 48 hrs Weight 98.112 kg Weight 90.718 kg Physical Exam Narrative: General: No acute distress, AO x3, dehydrated HEENT: PERRLA, pupils bilaterally equal and reactive Chest: Normal vesicular breath sounds, no added sounds, equal good air entry bilaterally CVS: S1-S2 regular, no murmurs, no tachycardia, no gallops, no rubs Abdomen: Soft, nontender, no organomegaly, bowel sounds present Neuro: No focal deficits, no facial deformity, AO x3, power 5/5 in all limbs Data 06/29/22 06:45 06/29/22 09:39 Micro: Microbiology 06/28/22 16:06 Bacterial Antigens - Final Urine Kidney 06/28/22 20:20 C.difficile Toxin B Gene (PCR) - Final Stool 06/28/22 22:15 Blood Culture - Preliminary Blood SPECIMEN COLLECTED 06/28/22 22:20 Blood Culture - Preliminary Blood SPECIMEN COLLECTED 06/28/22 16:06 Legionella Urinary Antigen - Final Urine,Voided 06/28/22 20:20 Stool Lactoferrin - Final Stool Occult Blood (FIT) - Final A&P Assessment and plan (1) Chronic diarrhea: Being followed up as an out patient. Stool BM culture as an outpatient was negative. Failure to outpatient treatment. Stool studies so far partially available. C. difficile negative. Awaiting enteric bacterial and parasite panel. CT abdomen pelvis consistent with significant pancolitis. Continue with IV ciprofloxacin and Flagyl. Patient is allergic to penicillin. Switch to half NS with 20 mg of potassium 75 cc/h. Watch for fluid overload. (2) Pancolitis: Treatment as above. Patient will most likely require a colonoscopy as an outpatient in 2 to 4 weeks post resolution of symptoms and completion of antibiotic therapy. (3) Unstable angina: Stress test in August 2020 showed prior infarct in the LAD/circumflex artery territory with small area of tammy-infarct ischemia. Start on aspirin. Continue with atorvastatin. Continue with beta-reymundo. Continue with home dose of nitrate for now. Echocardiogram done in April shows an EF of 50% without regional wall motion normality. Appreciate A1c, lipid panel results. Limited echocardiogram awaited. Troponin cycle negative. Will consult cardiology for possible cardiac angiogram. Discussed with family and they are agreeable. (4) Acute hypokalemia: Most likely secondary to chronic diarrhea. Better. Replete with 80 mg of oral potassium daily. Continue to monitor every 8 hourly for now. (5) CAD (coronary artery disease): (6) Atrial fibrillation: Currently rate controlled. Continue with home dose of metoprolol. Continue with home dose of Coumadin. Monitor INR daily. Currently subtherapeutic most likely secondary to diarrhea. We will continue to monitor. (7) HTN (hypertension): (8) Transaminitis: Most likely secondary to diarrhea and dehydration. Patient has history of cholecystectomy. Appreciate ultrasound gallbladder. Check hepatitis panel. Continued IV hydration. Monitor CMP daily. If continues to worsen we will plan for MRCP. (9) Positive cardiac stress test: Plan Full code. Regular diet. Protonix for PUD prophylaxis Heparin 5000 every 12 hourly for DVT prophylaxis. Attestations Medical Necessity Statement*: Requires further hospitalization for management of acute hypokalemia in setting of chronic diarrhea from pancolitis, unstable angina in setting of positive stress test Time Spent in Patient Care: Greater than 35 minutes Coding Level of Care Code Acute Patient Account Specialist for g Fwd Diagnoses Chronic diarrhea K52.9 Pancolitis K51.00 Unstable angina I20.0 Acute hypokalemia E87.6 CAD (coronary artery disease) I25.10 Atrial fibrillation I48.91 HTN (hypertension) I10 Transaminitis R74.01 Positive cardiac stress test R94.39
[2022-06-29] MEDS: ciprofloxacin 200 MG/100 ML PREMIX 100 MG IV ×2 (10:35→21:21)
--- NOTE | 2022-06-29 10:45 | USCV_ITS ---
Loreta Goode Age: 76 Gender: F : 1945 Exam Date: 06/29/2022 11:28 Ordering Phys: Fili Moreno MD Technologist: Ifeanyi Aguilar [place] [facility] [place]ication: RWMA BP: 97 / 57 HR: 76 Rhythm: Sinus Technical Quality: Adequate MEASUREMENTS (Male / Female) Normal Values 2D ECHO LV Diastolic Diameter PLAX 4.5 cm 4.2 - 5.9 / 3.9 - 5.3 cm LV Systolic Diameter PLAX 2.4 cm IVS Diastolic Thickness 1.3 cm 0.6 - 1.0 / 0.6 - 0.9 cm IVS Systolic Thickness 1.3 cm LVPW Diastolic Thickness 1.1 cm 0.6 - 1.0 / 0.6 - 0.9 cm LVPW Systolic Thickness 1.3 cm LVOT Diameter 2.0 cm LV Ejection Fraction 2D Teich 78.4 % LV Ejection Fraction MOD 2C 74.8 % LV Ejection Fraction 2C AL 73.7 % LA Diameter 4.3 cm M-MODE Aortic Annulus Diameter 2.8 cm LA Ao Ratio MM 1.6 MV E Point Septal Separation 0.8 cm FINDINGS Left Ventricle Normal left ventricular size and systolic function, EF 71 %. No regional wall motion abnormalities. Mild left ventricular hypertrophy. Right Ventricle The right ventricle is normal in size and function. Right Atrium Moderately increased right atrial size. Left Atrium Moderately increased left atrial size. Mitral Valve No gross abnormalities noted Aortic Valve No gross abnormalities noted Tricuspid Valve No gross abnormalities noted Pulmonic Valve Pulmonic valve not well visualized. Pericardium Normal pericardium without effusion. Aorta Normal ascending aorta dimension. IVC Inferior vena cava not visualized. CONCLUSIONS Normal left ventricular size and systolic function, EF 71 %. No regional wall motion abnormalities. Mild left ventricular hypertrophy. Moderate biatrial enlargement There is no pericardial effusion. There are no intracardiac masses. Compared to the study from 04/26/2022 no significant change in the 2D findings Dr Andrew Guerrero MD [facility] (Electronically Signed) Final Date: 30 June 2022 20:20 S
--- NOTE | 2022-06-29 10:45 | PC.CHAP ---
Pastoral Care Encounter/Spiritual Assessment Type of Contact [] Declined tap grinder visit [] Patient/Family/Request visit [] Outpatient visit [] Follow-up visit [] Physician referral [] Code/Alert [x] Routine visit [] Staff referral [] Actively dying [] Patient sleeping [] Family support [] [] Out of room [] Palliative care [] [] Receiving care in room [] Pre-surgical visit [] Trauma [] Long length of stay [] ICU visit [] Other: Relational/Emotional Strength [x] Patient feels connected with others/family/visitors/staff [] Distress [] Loneliness/isolation [] Abandonment Spirituality of Patient [x] Person of Lynda [] Attends Rastafari of their Lynda [] Believes in Prayer [] Reads Bible or Restorationism materials [x] There are Spiritual issues to be addressed Operations Engineer Interventions [x] Prayer [x] Active listening [x] Non-anxious presence [x] Spiritual/emotional support [] Crisis/trauma care [] Spiritual counseling [] Bereavement support [] Provided bereavement packet [] Provided Bible/devotional materials [] Provided toy/stuffed animal, coloring book to patient or family member [] Provided Communion [] Anointing/Dana [] Salvation [x] Completed spiritual assessment [] Other: Impact on Illness or Injury [] Angry [] Fearful [] Anxious [] Often cries [] Exhaustion [] Unable to work [] Unable to attend sabianist [] Unable to walk/stand [] Unable to read [] Unable to drive [] Unable to eat/drink [] Unable to sleep [] Unable to be with family [] Patient intubated [] Other: Summary Time spent with patient 10 min
[2022-06-29 11:09] LABS: Glucose Point of Care 172 mg/dL (70-110)
[2022-06-29 11:39] LABS: Vitamin B12 689 pg/mL (232-1245)
[2022-06-29] MEDS: sodium chlor 0.45% +KCl 20 mEq 20 MEQ/1,000 ML BAG 75 MEQ IV (11:40)
[2022-06-29] MEDS: potassium chloride ER 20 mEq Tablet 80 MEQ PO (11:40)
[2022-06-29] MEDS: acetaminophen 325 mg Tablet 650 MG PO (12:55)
[2022-06-29] MEDS: insulin lispro 100 unit/1 mL SUBCUT ×2 (13:00→20:22)
[2022-06-29] MEDS: pantoprazole 40 mg SDV IVP (16:53)
[2022-06-29 16:57] LABS: Glucose Point of Care 131 mg/dL (70-110)
[2022-06-29 17:11] LABS: Anion Gap 10.3 (5-19); Blood Urea Nitrogen 7 mg/dL (8-23); Calcium 7.4 mg/dL (8.5-10.5); Carbon Dioxide 23 mmol/L (22-29); Chloride 109 mmol/L (98-107); Glucose 147 mg/dL (65-115); Osmolality Calculated 289 mOsm/kg (285-295); Potassium 3.3 mmol/L (3.5-5.1); Sodium 139 mmol/L (136-145)
[2022-06-29 20:17] LABS: Glucose Point of Care 242 mg/dL (70-110)
[2022-06-29] MEDS: metoprolol tartrate 25 mg Tablet PO (20:21)
[2022-06-29] MEDS: lidocaine 5% Patch 1 PATCH TOPICAL (20:30)
[2022-06-30] MEDS: sodium chlor 0.45% +KCl 20 mEq 20 MEQ/1,000 ML BAG 75 MEQ IV ×2 (01:33→06:46)
[2022-06-30 04:30] VITALS: PULSE 71
--- NOTE | 2022-06-30 05:00 | XACV_ITS ---
Exam Room: [facility] Ht: 173 cm Wt: 98 kg BSA: 2.20 m2 Gender: Female : 1945 Any Known Allergies: Penicillins Exam Priority: Routine Procedure(s): Procedure Description: Diagnostic procedure Procedure Description: Left Heart Catheterization Procedure Description: Left ventriculography Procedure Description: Coronary Angiography Diagnostic Cath Status: Elective Diagnostic Findings * No significant disease noted in the Left Main, Left Anterior Descending, Right, or Circumflex coronary arteries. * Coronary angiography shows right dominance. Conclusions 1. No significant disease noted in the Left Main, Left Anterior Descending, Right, or Circumflex coronary arteries. 2. Normal left ventricular systolic function. Ejection fraction of 60%. Recommendations * Aggressive risk factor modification. * Outpatient cardiology follow-up in 4 weeks. Interventional RX Recommendation: medical therapy and/or counseling Diagnostic RX Recommendation: medical therapy and/or counseling Anticoagulation: Heparin Ventriculography Ejection Fraction: 60.0 % Pressures Phase:Rest AO : 97 / 54 ( 74 ) @ 6:24:00 AM 95 / 57 ( 73 ) @ 6:24:00 AM LV : 116 / 2 / 19 @ 6:23:00 AM 100 / -2 / 12 @ 6:24:00 AM 102 / -4 / 11 @ 6:24:00 AM Valves Phase:DefaultPhase AV : 4.0 @ 6:33:38 AM AV Mean Gradient: 5.0 @ 6:33:38 AM Clinical Evaluation EBL: 5mL-10mL Procedural Details Procedure Consent Obtained. Admit Source: In Patient. Pre-Procedure Time Out. Identified patient by full name and date of as verbalized by the patient/guarantor. Does the consent match the physician's order: Yes. Accurate & Complete Informed Consent: Yes. Inpatient/Outpatient History & Physical on Chart: Yes. If H&P is completed, is and addenduem needed: No; If yes, is the addendum complete: N/A. Visualize and Verify Site with Patient/Guarantor: N/A. Relevant Radiology Images available: Yes. Pre-op teaching completed and patient verbalized understanding. The risks, benefits, and alternatives of sedation and/or procedure were discussed by physician. The patient agrees to continue. Procedure started. Oxygen started at 2liters/min via nasal canula. [facility] Clinical Fraility Score: 3: Managing Well. Child Care Assistant Indications: Worsening Angina. Chest Pain Symptom Assessment: Typical Angina Symptoms. Correct patient, site and procedure confirmed by cath team. Current diagnosis: Chest Pain. PERRLA. Strong, equal hand surgical garment inspector bilaterally. Lungs clear x 5 lobes. IV Site on Arrival: 20 gauge in the left forearm. IV Fluids: 0.9% NaCl at KVO. 100 mL infused prior to wastewater analyst lab analyst. Pre Procedural Pulses: bilateral radial was 1+. Pre Procedural Pulses: left dorsalis pedis was 1+. Pre Procedural Pulses: left posterior tibial was 1+. right radial was prepped with chloroprep then draped in the usual sterile fashion. right groin was prepped with chloroprep then draped in the usual sterile fashion. Baseline sample Acquired. HR: 76 BPM. Physician notified. Physician arrived. Physician scrubbed in. Immediate Pre-Procedure Time Out. Correct Patient: Yes; Correct Procedure: Yes; Correct Site: Yes; Correct Patient Position: Yes; Correct Supplies: Yes; Dried Flammable Prep: Yes; Blood Products Available: No;. Lidocaine 1% infiltrated to the right radial. Arterial access obtained. A 5 mosotho TIG catheter in over wire. Exchange wire out. Catheter parked in subclavian. Hand injection of contrast performed. Glidewire advanced through catheter. Glidewire out. Multiple views taken of left coronary artery. Catheter removed over the exchange wire. A 5 mosotho JR4 catheter in over wire. Multiple views taken of right coronary artery. Catheter removed over the exchange wire. A 5 mosotho Angled Pig catheter in over wire. EDP Sample taken: LV 116/2,19; HR: 85 BPM; SpO2: 99%. LV gram performed in PEREZ @ 10 mL/second for a total of 30 mL. EDP Sample taken: LV 100/-3,12; HR: 85 BPM; SpO2: 100%. Pullback taken: LV 102/-5,11; AO 97/54(74); Mean: 5mmHg, Peak to Peak: 4mmHg, SEP: 23sec/min; HR: 92 BPM; SpO2: 98%. Catheter removed over the exchange wire. A TR Band was successful obtaining hemostatsis at the Right Radial artery insertion site. Patient's family updated. Post Procedure: Pulses reassessed and unchanged. PERRLA. Strong, equal hand surgical garment inspector bilaterally. No VTE prophylaxis required. Medication's Wasted: Nitro = 49.8 mg. Medication's Wasted: Heparin = 1000 units. Medication's Wasted: Other = Fentanyl 50 mcg. Medication's Wasted: Other = Versed 1 mg. Medication's Wasted: Lidocaine 1% = 2 ml. Total IV fluids: 30 mL. Post-op diagnosis: Non-obstructive CAD. Complications: None. Estimated blood loss: 5mL-10mL. Responsiveness - Normal response to verbal stimuli; alert and oriented, PERRLA. Airway - Unaffected, no intervention required; spontaneous ventilation. Circulation: W/N/L, pulses unchanged. Nausea/Vomiting: N/A. Patient transferred by bed to 1st floor. Vital chart was stopped. Access Site Site: Right Radial artery Sheath Size: 6 Fr Hemostasis Method: TR Band Hemostasis Success: Successful Procedure Medications Start: 6:07 AM Stop: 6:07 AM Medication: Versed 1 mg and Fentanyl 25 mcg Amount: 1 Route: I.V. Start: 6:09 AM Stop: 6:09 AM Medication: Fentanyl Amount: 25 mcg Route: I.V. Start: 6:11 AM Stop: 6:11 AM Medication: Nitrogylcerin Amount: 200 mcg Route: I.A. Start: 6:15 AM Stop: 6:15 AM Medication: Heparin Amount: 5000 units Route: I.V. I, the attending physician, have reviewed and verified all procedure medications. Yes, all medications given per verbal order History/Risk Factors Hypertension: Yes Dyslipidemia: No Peripheral Arterial Disease (PAD): No Myocardial Infarction (RI): No Obesity: Yes Renal Disease: No Tobacco Use: Never Prior Interventions PCI: No CABG: No Valve Surgery: No Report Signatures Finalized by Blade Morales MD on 06/30/2022 07:22 AM
[2022-06-30] MEDS: sodium chloride 0.9% 1,000 ML 50 ML IV (05:02)
[2022-06-30] MEDS: diphenhydrAMINE 50 mg Capsule PO (05:02)
[2022-06-30] MEDS: metroNIDAZOLE IV 500 MG/100 ML PREMIX 100 MG IV (05:02)
[2022-06-30 05:08] VITALS: BP 110/74; PULSE 81; RESP 21; O2SAT 90
--- NOTE | 2022-06-30 06:05 | W.PM.OPSUD ---
Surgery/Procedure H&P Update DATE OF PROCEDURE: June 30, 2022 DATE H&P PERFORMED: 06/29/22 H&P UPDATE INFORMATION: I have reviewed H&P completed within last 30 days, I have examined patient prior to procedure and No changes to prior documentation PREOP DIAGNOSIS: Worsening angina PRIMARY INDICATION FOR PROCEDURE: Worsening angina PLANNED PROCEDURE: Left heart cath with possible percutaneous coronary intervention PATIENT REASSESSED PRIOR TO SEDATION, WITH NO CHANGE NOTED: Yes PHYSICAL EXAM: alert, oriented x 3 and clear to auscultation bilaterally OTHER PERTINENT EXAM FINDINGS: Irregularly irregular AIRWAY EVAL/ANESTHESIA PLAN: normal airway, ASA III, Local Anesthesia, Risks, benefits & alternatives of sedation and/or procedure discussed and Patient agrees to continue as planned ADDITIONAL INFORMATION: Moderate sedation
--- NOTE | 2022-06-30 06:49 | PC.NURSE ---
Patient received from laborer cheesemaking s/p [facility] with right radial access. TR band in place at this time. Pulses palpables, extremity warm to touch and patient denies pain to site. No s/s of bleeding or hematoma formation observed. Telemetry in place. VS WNL. Will continue to monitor
--- NOTE | 2022-06-30 07:02 | PM.PN ---
Subjective Subjective: Patient underwent coronary angiogram showing no significant CAD. Denies chest pain this AM Vitals/I&O/Wt Last Vital Signs Temp 98.7 F 06/29/22 20:38 Pulse 81 06/30/22 05:08 Resp 21 H 06/30/22 05:08 BP 110/74 06/30/22 05:08 Pulse Ox 90 06/30/22 05:08 O2 Del Method 06/30/22 05:08 06/29/22 06/30/22 06/30/22 22:59 06:59 14:59 Intake Total 1113.333 / 8100.437 4240 / 3330.000 Balance 1113.333 / 1747.505 5366 / 3330.000 Weight last 48 hrs Weight 216 lb 8 oz Weight 216 lb 4.8 oz Weight 200 lb Physical Exam Narrative: GENERAL: Patient is alert, awake and oriented x3. [] NECK: No jugular vein distension. [] HEENT: No cyanosis. No icterus. No pallor. [] HEART: Irregularly irregular LUNGS: Clear to auscultate bilaterally. [] CENTRAL NERVOUS SYSTEM: Grossly nonfocal. [] EXTREMITIES: Lower extremity with 1+ edema. Data 06/29/22 06:45 06/29/22 16:49 Micro: Microbiology 06/28/22 22:15 Blood Culture - Preliminary Blood NEGATIVE TO DATE 06/28/22 22:20 Blood Culture - Preliminary Blood NEGATIVE TO DATE 06/28/22 20:20 Enteric Pathogens (PCR) - Final Stool Parasite Antigen Panel - Final C.difficile Toxin B Gene (PCR) - Final 06/28/22 16:06 Bacterial Antigens - Final Urine Kidney A&P Assessment and plan (1) Chest pain: (2) Chronic diarrhea: (3) CHF (congestive heart failure): (4) HTN (hypertension): (5) Atrial fibrillation: Plan Coronary angiogram shows nonobstructive CAD. No significant stenosis. Medical therapy. Can consider starting Ranexa. Restart Coumadin today. Replace electrolytes as needed. Thank you for involving us with care of this patient. Please call with questions. Attestations Medical Necessity Statement*: Care expected to cross 2 midnights. Coding Level of Care Code Acute Parole Supervisor for [facility] Fwd Diagnoses Chest pain R07.9 Chronic diarrhea K52.9 CHF (congestive heart failure) I50.9 HTN (hypertension) I10 Atrial fibrillation I48.91
[2022-06-30 08:00] VITALS: BP 121/90; PULSE 86; RESP 13; TEMP 36.7
[2022-06-30 09:07] LABS: Basophils % 0.5 %; Eosinophils # 0.1 10^3/uL (0.0-0.8); Eosinophils % 1.7 %; Hematocrit 40.1 % (37.0-47.0); Hemoglobin 13.2 g/dL (11.5-15.3); Lymphocytes # 1.2 10^3/uL (0.8-4.8); Lymphocytes % 17.4 %; Mean Corpuscular HGB Conc 32.9 g/dL (30.0-36.0); Mean Corpuscular Hemoglobin 31.2 pg (28.0-34.0); Mean Corpuscular Volume 94.8 fl (81-99); Mean Platelet Volume 9.2 fL (7.4-10.4); Monocytes # 0.7 10^3/uL (0.2-0.9); Monocytes % 9.9 %; Neutrophils # 4.66 10^3/uL (1.8-7.7); Nucleated Red Blood Cells % 0 %; Platelet Count 289 10^3/cmm (130-400); Red Blood Count 4.23 10^6/uL (4.1-5.3); Red Cell Distribution Width 18.9 % (12.1-15.1); White Blood Count 6.7 10^3/uL (4.0-10.0)
[2022-06-30 09:19] LABS: INR 1.48 (0.8-1.2)
[2022-06-30 09:33] LABS: Alanine Aminotransferase 24 U/L (0-33); Albumin Level 2.1 g/dL (3.5-5.2); Alkaline Phosphatase 147 U/L (35-105); Anion Gap 10.2 (5-19); Aspartate Amino Transferase 31 U/L (0-32); Blood Urea Nitrogen 5 mg/dL (8-23); Calcium 7.4 mg/dL (8.5-10.5); Carbon Dioxide 20 mmol/L (22-29); Chloride 110 mmol/L (98-107); Glucose 116 mg/dL (65-115); Osmolality Calculated 282 mOsm/kg (285-295); Potassium 3.2 mmol/L (3.5-5.1); Sodium 137 mmol/L (136-145); Total Bilirubin 0.9 mg/dL (0.15-1.2); Total Protein 4.1 g/dL (6.6-8.7)
[2022-06-30 09:34] LABS: Magnesium 1.7 mg/dL (1.7-2.3)
--- NOTE | 2022-06-30 10:01 | PM.DCS ---
Discharge Providers Date of Admission: 06/28/22 15:35 Date of Discharge: June 30, 2022 Attending Provider at Admission: Fili Moreno MD Attending Provider at Discharge: Fili Moreno MD Consults: Cardiology: Dr. 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 Patient states she forgot to put her nitrate patch yesterday because of chronic diarrhea which has been going on for last 6 weeks and started having chest pain.? Chest pain was relieved 20 minutes after using the Nitropatch. Patient states she has been having diarrhea for last 6 weeks since Thanksgiving which at first they thought was secondary to stress related to passing away of her .? She has followed up with a primary care provider for the same as an outpatient and had a bowel culture which was negative and hence was being treated by Imodium without any help. In the ER she was found to have a potassium level of less than 2 along with extreme weakness hence hospitalist service was contacted for admission. Examination patient lying comfortably in bed stating she is fairly weak, feeling dehydrated.? Denies any abdominal pain, melena, nausea, vomiting but does complain of decreased appetite.? Hospital Course Hospital Course Patient was admitted to the hospital for further evaluation and management of severe hypokalemia along with chest pain in setting of positive stress test recently along with chronic diarrhea with failure of outpatient treatment. Potassium was regularly repeated and rechecked. She was started on empiric antibiotics IV hydration. Stool studies were negative for any infectious causes. CT abdomen pelvis was done which was consistent with pancolitis . She responded well to the treatment and number of bowel movements have been decreasing along with stabilizing of potassium levels. After electrolyte imbalance have been resolved she underwent cardiac angiogram for further evaluation of chest pain in setting of recent positive stress test. Cardiac angiogram was negative for any hemodynamically significant obstructive CAD. She has been discharged in hemodynamically stable condition on oral ciprofloxacin and Flagyl for next 10 days. She is to follow-up with her primary care provider within next 1 week for repeat BMP to monitor potassium levels. She is to continue taking 40 mg of oral potassium for next 1 week followed by home dose of 20 mg of potassium daily. Home dose of nitrate patch has been discontinued and has been changed to oral Imdur. She is to follow-up with Monica Beth/nurse practitioner from [facility] in [address] Morales from cardiology within next 1 month. She should follow-up with her pin drafting machine tender/surgeon within 1 month of resolution of symptoms for a colonoscopy for further evaluation of pancolitis. Physical Exam Narrative: General: No acute distress, AO x3, HEENT: PERRLA, pupils bilaterally equal and reactive Chest: Normal vesicular breath sounds, no added sounds, equal good air entry bilaterally CVS: S1-S2 regular, no murmurs, no tachycardia, no gallops, no rubs Abdomen: Soft, nontender, no organomegaly, bowel sounds present Neuro: No focal deficits, no facial deformity, AO x3, power 5/5 in all limbs Discharge Data Studies Completed and Pending Completed Studies During Hospitalization Category Date Time Status CT abdomen pelvis wo con [id number] Stat Cat Scan 06/28/22 17:35 Completed DEL[employer]CH[employer] request for service Routine Exams 06/30/22 05:00 Completed XR chest 1V portable [id number] Stat Exams 06/28/22 12:19 Completed US gall bladder [id number] Stat Ultrasound 06/28/22 13:12 Completed Pending at discharge Category Date Time Status [facility] Profile Custom [[facility] [place] QAM Lab 06/30/22 08:50 Received Blood Culture Stat Lab 06/28/22 22:15 Results Magnesium AM LABS Lab 07/01/22 04:00 Ordered Prothrombin Time INR AM LABS Lab 07/01/22 04:00 Ordered CV. echo limited [id number] Routine Ultrasound 06/29/22 10:45 Taken Radiology Impressions Chest X-Ray 06/28/22 12:19 IMPRESSION: Cardiomegaly with chronically decreased lung volumes, stable. Gallbladder Ultrasound 06/28/22 13:12 IMPRESSION: 1. Severely limited assessment of the liver and pancreas. 2. Prior cholecystectomy. Abdomen/Pelvis CT 06/28/22 17:35 IMPRESSION: 1. Findings consistent with mild to moderate pancolitis. Findings may be infectious or inflammatory in nature, or could suggest pseudomembranous colitis in the appropriate clinical situation. Recommend clinical correlation. 2. Indeterminate hyperdense focus in the right kidney. 3. Colonic diverticulosis. No evidence for diverticulitis. 4. Incidental/nonacute findings are listed in the report. COMMENTS: Consistent with the [employer]'s Incidental Findings Committee white paper (J Am Alli Radiol 2018): Any incidental renal lesion less than 1 cm or classified as too small to characterize, or any incidental cystic renal lesion characterized as simple-appearing, is likely benign. No follow-up imaging is recommended for these lesions per consensus recommendations based on imaging criteria. Laboratory Results WBC 6.7 10^3/uL (4.0-10.0) 06/30/22 08:50 RBC 4.23 10^6/uL (4.1-5.3) 06/30/22 08:50 Hgb 13.2 g/dL (11.5-15.3) 06/30/22 08:50 Hct 40.1 % (37.0-47.0) 06/30/22 08:50 MCV 94.8 fl (81-99) 06/30/22 08:50 MCH 31.2 pg (28.0-34.0) 06/30/22 08:50 MCHC 32.9 g/dL (30.0-36.0) 06/30/22 08:50 RDW 18.9 % (12.1-15.1) H 06/30/22 08:50 Plt Count 289 10^3/cmm (130-400) 06/30/22 08:50 MPV 9.2 fL (7.4-10.4) 06/30/22 08:50 Neut % (Auto) 70.0 % 06/30/22 08:50 Lymph % (Auto) 17.4 % 06/30/22 08:50 Irwin % (Auto) 9.9 % 06/30/22 08:50 Eos % (Auto) 1.7 % 06/30/22 08:50 Baso % (Auto) 0.5 % 06/30/22 08:50 Neut # (Auto) 4.66 10^3/uL (1.8-7.7) 06/30/22 08:50 Lymph # (Auto) 1.2 10^3/uL (0.8-4.8) 06/30/22 08:50 Irwin # (Auto) 0.7 10^3/uL (0.2-0.9) 06/30/22 08:50 Eos # (Auto) 0.1 10^3/uL (0.0-0.8) 06/30/22 08:50 Baso # (Auto) 0.0 10^3/uL (0.0-0.1) 06/30/22 08:50 Nucleated RBC % (auto) 0 % 06/30/22 08:50 Nucleated RBCs # 0.0 /100WBC 06/30/22 08:50 PT 18.30 SECONDS (12.1-14.9) H 06/30/22 08:50 INR 1.48 (0.8-1.2) H 06/30/22 08:50 Sodium 137 mmol/L (136-145) 06/30/22 08:50 Potassium 3.2 mmol/L (3.5-5.1) L 06/30/22 08:50 Chloride 110 mmol/L (98-107) H 06/30/22 08:50 Carbon Dioxide 20 mmol/L (22-29) L 06/30/22 08:50 Anion Gap 10.2 (5-19) 06/30/22 08:50 BUN 5 mg/dL (8-23) L 06/30/22 08:50 Creatinine 0.7 mg/dL (0.5-0.9) 06/30/22 08:50 GFR Calculation Not Reportable 06/30/22 08:50 Glucose 116 mg/dL (65-115) H 06/30/22 08:50 POC Glucose 242 mg/dL (70-110) H 06/29/22 20:13 Estimat Average Glucose 131 06/29/22 06:45 Hemoglobin A1c 6.2 % (4.0-6.0) H 06/29/22 06:45 Calculated Osmolality 282 mOsm/kg (285-295) L 06/30/22 08:50 Calcium 7.4 mg/dL (8.5-10.5) L 06/30/22 08:50 Phosphorus 1.9 mg/dL (2.5-4.5) L 06/29/22 09:39 Magnesium 1.7 mg/dL (1.7-2.3) 06/30/22 08:50 Iron 71 ug/dL (37-145) 06/28/22 12:10 TIBC 143 mcg/dl 06/28/22 12:10 % Saturation 49.6 % (20-50) 06/28/22 12:10 Unsat Iron Binding 72 ug/dL (112-347) L 06/28/22 12:10 Total Bilirubin 0.9 mg/dL (0.15-1.2) 06/30/22 08:50 AST 31 U/L (0-32) 06/30/22 08:50 ALT 24 U/L (0-33) 06/30/22 08:50 Alkaline Phosphatase 147 U/L (35-105) H 06/30/22 08:50 Troponin T Baseline 65 ng/L (0-10) H 06/28/22 12:10 Troponin T 120 Minute 58.55 ng/L (0-10) H 06/28/22 14:37 Delta Troponin T -6.45 ABS# (0-10) L 06/28/22 14:37 Troponin T Hi Sens 6Hr 56.38 ng/L (0-10) H 06/28/22 17:50 Troponin T Hi Sens 6Hr Delta -8.62 ng/L (0-12) L 06/28/22 17:50 Total Protein 4.1 g/dL (6.6-8.7) L 06/30/22 08:50 Albumin 2.1 g/dL (3.5-5.2) L 06/30/22 08:50 Globulin 2.0 g/dL (1.3-4.6) 06/30/22 08:50 Triglycerides 75 mg/dL (0-150) 06/29/22 09:39 Cholesterol 93 mg/dL (0-200) 06/29/22 09:39 LDL Cholesterol, Calc 47 mg/dL (50-129) L 06/29/22 09:39 Total VLDL Cholesterol 15 mg/dL (0-30) 06/29/22 09:39 HDL Cholesterol 31 mg/dL (60-100) L 06/29/22 09:39 Cholesterol/HDL Ratio 3.00 mg/dL (0.0-4.40) 06/29/22 09:39 Vitamin B12 689 pg/mL (232-1245) 06/29/22 09:39 Folate 6.1 ng/mL (4.8-37.3) 06/28/22 12:10 TSH 2.29 uIU/mL (0.27-4.20) 06/28/22 12:10 Urine Color Yellow (Yellow) 06/28/22 16:06 Urine Appearance Clear (CLEAR) 06/28/22 16:06 Urine pH 6 (5-7) 06/28/22 16:06 Ur Specific [place] 1.010 (1.005-1.030) 06/28/22 16:06 Urine Protein Trace (Negative) 06/28/22 16:06 Urine Glucose (UA) 2+ (Normal) H 06/28/22 16:06 Urine Ketones Negative (Negative) 06/28/22 16:06 Urine Blood Neg (Negative) 06/28/22 16:06 Urine Nitrate Negative (Negative) 06/28/22 16:06 Urine Bilirubin Neg (Negative) 06/28/22 16:06 Urine Urobilinogen Norm mg/dL (Negative) 06/28/22 16:06 Ur Leukocyte Esterase Negative (Negative) 06/28/22 16:06 Urine RBC None /hpf (0-2) 06/28/22 16:06 Urine WBC 0-4 /hpf (0-5) H 06/28/22 16:06 Ur Squamous Epith Cells 5-10 /hpf (0-5) H 06/28/22 16:06 Ur Renal Epithelial Cell 0-2 /hpf 06/28/22 16:06 Amorphous Sediment Not Reportable 06/28/22 16:06 Urine Bacteria None /hpf (NONE) 06/28/22 16:06 Coarse Granular Casts 0-2 /lpf 06/28/22 16:06 Urine Opiates Screen Positive ng/mL (Negative) H 06/28/22 16:06 Ur Barbiturates Screen Negative ng/mL (Negative) 06/28/22 16:06 Ur Phencyclidine Scrn Negative ng/mL (Negative) 06/28/22 16:06 Ur Amphetamines Screen Negative ng/mL (Negative) 06/28/22 16:06 U Benzodiazepines Scrn Negative ng/mL (Negative) 06/28/22 16:06 Urine Cocaine Screen Negative ng/mL (Negative) 06/28/22 16:06 U Marijuana (THC) Screen Negative ng/mL (Negative) 06/28/22 16:06 Hepatitis A IgM Ab Non-reactive (Nonreactive) 06/28/22 12:10 Hep Bs Antigen Non-reactive (Nonreactive) 06/28/22 12:10 Hep Bs Antibody 4.1 (11.5-1000) L 06/28/22 12:10 Hep B Core Total Ab Non-reactive (Nonreactive) 06/28/22 12:10 Hepatitis C Antibody Non-reactive (Nonreactive) 06/28/22 12:10 Procedures Performed Veneer Department Manager procedure: Diagnostic Cath Status: ? ? Elective Diagnostic Findings ? * No significant disease noted in the Left Main, Left Anterior Descending, Right, or Circumflex coronary arteries. ? * Coronary angiography shows right dominance. Conclusions ? 1. No significant disease noted in the Left Main, Left Anterior Descending, Right, or Circumflex coronary arteries. ? 2. Normal left ventricular systolic function. Ejection fraction of 60%. Recommendations ? * Aggressive risk factor modification. ? * Outpatient cardiology follow-up in 4 weeks. Vitals Last Vital Signs Temp 98.1 F 06/30/22 08:00 Pulse 86 06/30/22 08:00 Resp 13 06/30/22 08:00 BP 121/90 06/30/22 08:00 Pulse Ox 90 06/30/22 05:08 O2 Del Method 06/30/22 05:08 Discharge Plan Discharge Patient Disposition: Home Condition: Stable Prescriptions: New ciprofloxacin HCl 500 mg tablet 500 mg PO Q12H 10 Days Qty: 20 0RF metronidazole [Flagyl] 375 mg capsule 375 mg PO BID 10 Days Qty: 20 0RF isosorbide mononitrate 30 mg tablet extended release 24 hr 30 mg PO DAILY Qty: 30 0RF Continued nitroglycerin 0.4 mg tablet, sublingual 0.4 mg sublingual Q5M PRN (Reason: Chest Pain) Rx Instructions: do not exceed 3 doses per episode canagliflozin 100 mg tablet 100 mg PO DAILY Lantus Solostar U-100 Insulin 100 unit/mL (3 mL) insulin pen 38 unit SUBCUT DAILY pravastatin 80 mg tablet 80 mg PO DAILY duloxetine 60 mg capsule,delayed release(DR/EC) 60 mg PO DAILY furosemide 20 mg tablet 20 mg PO DAILY cinnamon bark [Cinnamon] 500 mg capsule 500 mg PO DAILY diclofenac epolamine 1.3 % patch 12 hour 1 patch topical Q12H metoprolol succinate 50 mg tablet extended release 24 hr 50 mg PO DAILY hydrocodone-acetaminophen 10-325 mg tablet 1 tab PO Q8H PRN (Reason: Pain) warfarin 4 mg Tablet See Rx Instructions .ROUTE .COMPLEX Rx Instructions: 3 mg orally every day and 1 mg orally in addition to equal (4mg) on Tuesday and Tuesday levothyroxine 75 mcg Tablet 75 mcg PO DAILY gabapentin 300 mg Capsule 300 mg PO TID Changed potassium chloride 10 mEq tablet extended release 40 meq PO DAILY 7 Days Qty: 28 0RF Discontinued nitroglycerin 0.2 mg/hr patch 24 hour 1 patch transdermal DAILY Rx Instructions: allow nitrate-free interval of approx. 10-12 hrs per 24-hour period metoprolol succinate 25 mg Tablet Extended Release 24 Hr 25 mg PO QPM Discharge Orders: Discharge Order (Routine); Ordered 06/30/22 Ordered By: Fili Moreno Referrals: [facility] [Other] (If you would like to check on in home services provided by your Medicaid, you can call this number. ) Anthony George MD [Primary Care Provider] - 4-7 days Balde Morales M.D [Physician] - 1 month Monica Beth FNP [Nurse Practitioner] - 7-10 days Discharge Diet: Cardiac Discharge Activity: Resume usual activity and Increase activity as tolerated Patient Instructions: Opioid Safety Activity Restrictions/Additional Instructions: Please follow-up with a primary care provider within next 1 week. You should repeat a BMP with a primary care provider on the next follow-up to monitor potassium levels. Continue taking 7 days after that revert back to your regular home dose of 20 mEq daily. Nitrate patch has been stopped and changed to oral Imdur. Please follow-up with your Monica Beth/nurse practitioner from cardiology services within next [address] Morales within next 1 month. Ciprofloxacin and Flagyl are the antibiotics which he supposed to take twice daily for next 10 days. Going forward you should have a colonoscopy done within next 1 month after resolution of his symptoms. Discharge Attestations Time Spent in Discharge Care*: greater than 30 min Specific Discharge Activities: educating patient, educating and/or supporting family/caregiver, discussing with pcp/other providers, discussing with lining caser/social workers/dc planners, documenting/other paperwork and evaluating patient/reviewing data Status at Discharge: Cognitive status at discharge: cognitively intact, Behavioral status at discharge: cooperative, Functional status at discharge: uses cane/walker, Overall status at discharge: patient is progressing back to baseline Quality Metrics Clinical Quality Measures [ No reported AMI, CVA or VTE this stay] Coding Level of Care Code Acute Chg FW DC note Diagnoses Chest pain R07.9 Chronic diarrhea K52.9 CHF (congestive heart failure) I50.9 HTN (hypertension) I10 Atrial fibrillation I48.91
[2022-06-30 10:33] LABS: Glucose Point of Care 116 mg/dL (70-110)
[2022-06-30] MEDS: potassium chloride ER 20 mEq Tablet 80 MEQ PO (10:42)
--- NOTE | 2022-06-30 10:48 | PC.NURSE ---
15 mls of air has been released from TR band. Will leave band in place for an hour and monitor for any bleeding.
[2022-06-30 11:19] LABS: Glucose Point of Care 91 mg/dL (70-110)
[2022-06-30 11:26] VITALS: BP 100/71; PULSE 76; RESP 23; TEMP 36.7; O2SAT 98
[2022-06-30 12:40] VITALS: BP 106/82; PULSE 71; RESP 18; TEMP 36.7; O2SAT 95
--- NOTE | 2022-06-30 13:31 | PC.NURSE ---
pt discharged home with family. Voices understanding of discharge instructions. Taken to personal vehicle via w/c.
[2022-07-01 11:50] LABS: Anti-Double Strand DNA AB <1 IU/mL; Jo-1 Antibody <1.0 NEG AI (<1.0 NEG); SM/RNP Antibodies <1.0 NEG AI (<1.0 NEG); SS-B/LA IGG <1.0 NEG AI (<1.0 NEG); Scleroderma Ab(Scl-70) Ab <1.0 NEG AI (<1.0 NEG); Ss-A/Ro Igg <1.0 NEG AI (<1.0 NEG)
== END 2022-06-30 12:45 | disposition home or self-care (01) | DRG 287 ==
LOC: ER 17:19 → CSU 19:07
PROVIDERS: Internal Medicine; Admitting Provider Student in an Organized Health Care Education/Training Program; Emergency Provider Family Medicine; PCP Family Medicine; Visit Provider Student in an Organized Health Care Education/Training Program
PROC: 4A023N7 Measurement of Cardiac Sampling and Pressure, Left Heart, Percutaneous Approach (ICD-10-PCS; principal; 2022-06-30 06:00)
DX: I25.110 Atherosclerotic heart disease of native coronary artery with unstable angina pectoris (principal); K51.00 Ulcerative (chronic) pancolitis without complications; E87.6 Hypokalemia; I10 Essential (primary) hypertension; I48.91 Unspecified atrial fibrillation; I25.2 Old myocardial infarction; Z79.4 Long term (current) use of insulin; Z79.891 Long term (current) use of opiate analgesic; Z79.01 Long term (current) use of anticoagulants; F03.90 Unspecified dementia, unspecified severity, without behavioral disturbance, psychotic disturbance, mood disturbance, and anxiety; F32.A Depression, unspecified; F41.1 Generalized anxiety disorder; K21.9 Gastro-esophageal reflux disease without esophagitis; E89.0 Postprocedural hypothyroidism; Z88.0 Allergy status to penicillin; R94.39 Abnormal result of other cardiovascular function study; E86.0 Dehydration; Z89.611 Acquired absence of right leg above knee; G47.33 Obstructive sleep apnea (adult) (pediatric); M54.16 Radiculopathy, lumbar region
CPT/HCPCS: 36415; 36416; 71045; 74176; 76705; 80048; 80053; 80061; 80306; 81001; 82274; 82607; 82746; 82962; 83036; 83540; 83550; 83630; 83735; 84100; 84132; 84443; 84484; 85025; 85610; 86225; 86235; 86403; 86705; 86706; 86709; 86803; 87040; 87340; 87449; 87493; 87506; 93005; 93308; 93458; 94664; 96365; 96366; 96372; 97110; 97161; 97530; 99152; 99153; 99285; C1769; C1887; C1894; C9113; J0744; J1644; J1815; J2250; J3010; J3480; J3490; J7030; Q0163; Q9967

== ENCOUNTER 2022-07-05 15:43 | Outpatient (CLI) | payer MEDICARE, MEDICAID, SELFPAY ==
[2022-07-05 16:53] LABS: INR 1.29 (0.8-1.2)
[2022-07-05 18:14] LABS: Alanine Aminotransferase 38 U/L (0-33); Albumin Level 2.8 g/dL (3.5-5.2); Alkaline Phosphatase 254 U/L (35-105); Anion Gap 14.2 (5-19); Aspartate Amino Transferase 40 U/L (0-32); Blood Urea Nitrogen 4 mg/dL (8-23); Calcium 7.9 mg/dL (8.5-10.5); Carbon Dioxide 21 mmol/L (22-29); Chloride 110 mmol/L (98-107); Globulin 2.1 g/dL (1.3-4.6); Glucose 166 mg/dL (65-115); Osmolality Calculated 293 mOsm/kg (285-295); Potassium 4.2 mmol/L (3.5-5.1); Sodium 141 mmol/L (136-145); Total Bilirubin 0.5 mg/dL (0.15-1.2); Total Protein 4.9 g/dL (6.6-8.7)
== END 2022-07-05 15:44 | disposition home or self-care (01) ==
LOC: LAB 15:49
PROVIDERS: PCP Nurse Practitioner; Visit Provider Nurse Practitioner
DX: E87.6 Hypokalemia (principal); I48.91 Unspecified atrial fibrillation
CPT/HCPCS: 36415; 80053; 85610

== ENCOUNTER → 2022-07-08 15:08 | Outpatient (BNVA) | payer MEDICARE, MEDICAID, SELFPAY | PROVIDERS: PCP Nurse Practitioner; Visit Provider Nurse Practitioner Family | DX: I25.10 Atherosclerotic heart disease of native coronary artery without angina pectoris (principal); I48.91 Unspecified atrial fibrillation; I11.0 Hypertensive heart disease with heart failure; I50.9 Heart failure, unspecified; Z79.01 Long term (current) use of anticoagulants | CPT/HCPCS: 99214 ==

== ENCOUNTER 2022-08-24 09:35 | Outpatient (CLI) | payer MEDICARE, MEDICAID, SELFPAY ==
[2022-08-24 11:07] LABS: Alanine Aminotransferase 13 U/L (0-33); Albumin Level 2.9 g/dL (3.5-5.2); Alkaline Phosphatase 56 U/L (35-105); Anion Gap 11.8 (5-19); Aspartate Amino Transferase 21 U/L (0-32); Blood Urea Nitrogen 7 mg/dL (8-23); Calcium 8.2 mg/dL (8.5-10.5); Carbon Dioxide 26 mmol/L (22-29); Chloride 106 mmol/L (98-107); Chol HDL Ratio 2.12 mg/dL (0.0-4.40); Cholesterol 89 mg/dL (0-200); Globulin 2.5 g/dL (1.3-4.6); Glucose 117 mg/dL (65-115); HDL Cholesterol 42 mg/dL (60-100); LDL Cholesterol Calculated 32 mg/dL (50-129); Osmolality Calculated 289 mOsm/kg (285-295); Potassium 3.8 mmol/L (3.5-5.1); Sodium 140 mmol/L (136-145); Thyroid Stimulating Hormone 3.23 uIU/mL (0.27-4.20); Total Bilirubin 0.9 mg/dL (0.15-1.2); Total Protein 5.4 g/dL (6.6-8.7); Triglycerides 74 mg/dL (0-150); VLDL Cholestrol Calculation 15 mg/dL (0-30)
[2022-08-24 11:09] LABS: Estmated Average Glucose 117; Hemoglobin A1C 5.7 % (4.0-6.0)
== END 2022-08-24 09:36 | disposition home or self-care (01) ==
PROVIDERS: PCP Nurse Practitioner; Visit Provider Nurse Practitioner
DX: E11.65 Type 2 diabetes mellitus with hyperglycemia (principal); Z79.899 Other long term (current) drug therapy
CPT/HCPCS: 36415; 80053; 80061; 83036; 84443

== ENCOUNTER → 2022-09-13 12:49 | Outpatient (BNVA) | payer MEDICARE, MEDICAID, SELFPAY | PROVIDERS: PCP Nurse Practitioner; Visit Provider Internal Medicine | DX: I25.10 Atherosclerotic heart disease of native coronary artery without angina pectoris (principal); I11.0 Hypertensive heart disease with heart failure; I50.9 Heart failure, unspecified; I48.91 Unspecified atrial fibrillation; G47.33 Obstructive sleep apnea (adult) (pediatric); Z79.01 Long term (current) use of anticoagulants | CPT/HCPCS: 99214 ==

== ENCOUNTER 2022-11-18 14:53 | Outpatient (CLI) | payer MEDICARE, MEDICAID, SELFPAY ==
[2022-11-18 15:36] LABS: Add Urine Microscopic? NO; Charge for UA Resulting for Rev
[2022-11-18 15:51] LABS: Estmated Average Glucose 137; Hemoglobin A1C 6.4 % (4.0-6.0)
[2022-11-18 15:54] LABS: Bilirubin Urine Neg (Negative); Blood Urine Neg (Negative); Glucose Urine UA 4+ (Normal); Ketones Urine Negative (Negative); Leukocyte Esterase Urine Negative (Negative); Nitrate Urine Negative (Negative); Protein Urine Neg (Negative); Urine Appearance Clear (CLEAR); Urine Color Yellow (Yellow); Urobilinogen Urine Norm (Negative); pH Urine 5 (5-7)
[2022-11-18 16:22] LABS: Alanine Aminotransferase 14 U/L (0-33); Albumin Level 3.5 g/dL (3.5-5.2); Alkaline Phosphatase 46 U/L (35-105); Anion Gap 11.8 (5-19); Aspartate Amino Transferase 16 U/L (0-32); Blood Urea Nitrogen 10 mg/dL (8-23); Calcium 8.5 mg/dL (8.5-10.5); Carbon Dioxide 26 mmol/L (22-29); Chloride 104 mmol/L (98-107); Chol HDL Ratio 3.24 mg/dL (0.0-4.40); Cholesterol 159 mg/dL (0-200); Globulin 2.2 g/dL (1.3-4.6); Glucose 150 mg/dL (65-115); HDL Cholesterol 49 mg/dL (60-100); LDL Cholesterol Calculated 89 mg/dL (50-129); Osmolality Calculated 288 mOsm/kg (285-295); Potassium 3.8 mmol/L (3.5-5.1); Sodium 138 mmol/L (136-145); Thyroid Stimulating Hormone 0.94 uIU/mL (0.27-4.20); Total Bilirubin 0.5 mg/dL (0.15-1.2); Total Protein 5.7 g/dL (6.6-8.7); Triglycerides 107 mg/dL (0-150); VLDL Cholestrol Calculation 21 mg/dL (0-30)
[2022-11-18 16:38] LABS: Creatinine Urine, Random 60 mg/dL (28-217); Microalbum Creatinine Ratio Ur 17 mg/dL (0-20); Microalbumin Random Urine 1 ug/dL (0-20)
== END 2022-11-18 14:54 | disposition home or self-care (01) ==
PROVIDERS: PCP Nurse Practitioner; Visit Provider Nurse Practitioner
DX: E03.9 Hypothyroidism, unspecified (principal); E11.65 Type 2 diabetes mellitus with hyperglycemia
CPT/HCPCS: 36415; 80053; 80061; 81003; 82044; 83036; 84443

== ENCOUNTER 2023-02-02 15:08 | Outpatient (CLI) | payer MEDICARE, MEDICAID, SELFPAY ==
[2023-02-02 16:04] LABS: Basophils % 0.4 %; Hemoglobin 9.1 g/dL (11.5-15.3); Lymphocytes # 1.6 10^3/uL (0.8-4.8); Lymphocytes % 23.9 %; Mean Corpuscular HGB Conc 30.3 g/dL (30.0-36.0); Mean Corpuscular Hemoglobin 29.8 pg (28.0-34.0); Mean Corpuscular Volume 98.4 fl (81-99); Mean Platelet Volume 9.2 fL (7.4-10.4); Monocytes # 0.7 10^3/uL (0.2-0.9); Monocytes % 10.1 %; Neutrophils # 4.47 10^3/uL (1.8-7.7); Neutrophils % 65.2 %; Nucleated Red Blood Cells % 0 %; Platelet Count 471 10^3/cmm (130-400); Red Blood Count 3.05 10^6/uL (4.1-5.3); Red Cell Distribution Width 14.6 % (12.1-15.1); White Blood Count 6.9 10^3/uL (4.0-10.0)
[2023-02-02 16:54] LABS: Alanine Aminotransferase 11 U/L (0-33); Albumin Level 3.5 g/dL (3.5-5.2); Alkaline Phosphatase 124 U/L (35-105); Anion Gap 13.1 (5-19); Aspartate Amino Transferase 17 U/L (0-32); Blood Urea Nitrogen 13 mg/dL (8-23); Calcium 8.5 mg/dL (8.5-10.5); Carbon Dioxide 27 mmol/L (22-29); Chloride 104 mmol/L (98-107); Globulin 2.3 g/dL (1.3-4.6); Glucose 123 mg/dL (65-115); Osmolality Calculated 291 mOsm/kg (285-295); Potassium 4.1 mmol/L (3.5-5.1); Sodium 140 mmol/L (136-145); Total Bilirubin 0.3 mg/dL (0.15-1.2); Total Protein 5.8 g/dL (6.6-8.7)
== END 2023-02-02 15:09 | disposition home or self-care (01) ==
LOC: LAB 15:11
PROVIDERS: PCP Nurse Practitioner; Visit Provider Nurse Practitioner
DX: D64.9 Anemia, unspecified (principal); Z85.038 Personal history of other malignant neoplasm of large intestine
CPT/HCPCS: 36415; 80053; 85025

== ENCOUNTER → 2023-02-03 13:23 | Outpatient (BNVA) | payer MEDICARE, MEDICAID, SELFPAY | PROVIDERS: PCP Nurse Practitioner; Visit Provider Internal Medicine | DX: Z01.810 Encounter for preprocedural cardiovascular examination (principal); I25.10 Atherosclerotic heart disease of native coronary artery without angina pectoris; I48.91 Unspecified atrial fibrillation; I11.0 Hypertensive heart disease with heart failure; I50.9 Heart failure, unspecified; G47.33 Obstructive sleep apnea (adult) (pediatric); Z79.01 Long term (current) use of anticoagulants | CPT/HCPCS: 99214 ==

== ENCOUNTER 2023-02-05 10:30 | Outpatient (CLI) | payer MEDICARE, MEDICAID, SELFPAY ==
--- NOTE | 2023-02-05 11:00 | PETR_ITS ---
PROCEDURE INFORMATION: Exam: PET/CT Skull Base to Mid-thigh Exam date and time: 02/05/2023 11:31 AM Age: 77 years old Clinical indication: Condition or disease; Primary cancer: Malignant neoplasm of large intestine; Initial oncological staging assessment; Condition/disease: Adenocarcinoma right colon mass; Additional info: Z85.038 - personal history of other malignant neoplasm of. . . , Need gabby for surgeon LABS AND CLINICAL REPORTS: Glucose: 128 mg/dl Treatment strategy for malignancy (PET staging): Initial Staging (PI) TECHNIQUE: Imaging protocol: Following at least four-hour fasting and following the injection of radiopharmaceutical, low dose CT images were obtained. Then, PET images were obtained. Attenuation corrected images were constructed using the CT scan. Fused images of PET and CT were reviewed. The standardized uptake values (SUV) reported below are maximum values within a region of interest, expressed in gm/ml. Exam includes orbital meatal line to mid-thigh. Radiopharmaceutical: 13.47 mCi F-18 FDG (Fluorodeoxyglucose), IV. Time of imaging post radiopharmaceutical administration: 1 hour Injection site: Left AC COMPARISON: CT abdomen pelvis wo con [id number] 06/28/2022 7:51 PM FINDINGS: Brain: Visualized brain has normal physiologic uptake. Pharynx: No abnormal uptake. Larynx: No abnormal uptake. Lungs, pleura and trachea: There is minimal atelectasis or pleural thickening at the right lung base with some mild associated FDG uptake with SUV max 4.9. Heart: Normal physiologic uptake. Mediastinal space: There appears to be a Clarence Amy esophageal diverticulum along the left aspect of the thoracic inlet. Liver: No abnormal uptake. Gallbladder and bile ducts: Cholecystectomy. Pancreas: No abnormal uptake. Spleen: No abnormal uptake. Adrenal glands: No abnormal uptake. Kidneys and ureters: Simple left renal cyst without FDG uptake. Stomach and bowel: There is some FDG uptake associated with an ileal loop in the right hemiabdomen with SUV max of 6.3 on image 106. No associated soft tissue mass is appreciated. Reproductive: Hysterectomy. Vasculature: No abnormal uptake. Lymph nodes: No abnormal uptake. No lymphadenopathy in the head, neck, chest, abdomen, pelvis, and extremities. Bones/joints: There is some mild FDG uptake associated with the anterior 2nd through 7th ribs bilaterally and left anterior 8th rib at the costochondral junctions. There is some mild associated underlying irregularity of the ribs at these sites. Some calcified joint bodies are seen in the right subacromial space and along the posterior aspect of the right shoulder joint. Soft tissues: Atrophy of the right thigh musculature. PET/PET skulltothi INITIAL [id number] IMPRESSION: 1. No specific evidence of metastatic disease. 2. FDG uptake associated with the bilateral anterior ribs at the costochondral junctions with some associated underlying irregularity suggests healing fractures. 3. There is some FDG uptake associated with an ileal loop in the right hemiabdomen. No associated soft tissue mass is appreciated, and this may be inflammatory.
== END 2023-02-05 10:31 | disposition home or self-care (01) ==
LOC: RAD 02-07 05:51
PROVIDERS: PCP Nurse Practitioner; Visit Provider Nurse Practitioner
DX: Z01.818 Encounter for other preprocedural examination (principal); C18.2 Malignant neoplasm of ascending colon
CPT/HCPCS: 78815; A9552

== ENCOUNTER → 2023-02-17 11:40 | Outpatient (BNVA) | payer MEDICARE, MEDICAID, SELFPAY | PROVIDERS: PCP Nurse Practitioner; Visit Provider Nurse Practitioner | DX: E11.65 Type 2 diabetes mellitus with hyperglycemia (principal); E55.9 Vitamin D deficiency, unspecified; G62.9 Polyneuropathy, unspecified; I10 Essential (primary) hypertension; E61.1 Iron deficiency | CPT/HCPCS: 80053; 80061; 81000; 82306; 82607; 83550; 84443; 85025 ==

== ENCOUNTER 2023-05-25 10:41 | Outpatient (CLI) | payer MEDICARE, MEDICAID, SELFPAY ==
[2023-05-25 11:00] LABS: Basophils % 0.3 %; Hematocrit 44.3 % (36-47); Lymphocytes # 1.4 10^3/uL (0.8-4.8); Lymphocytes % 20.3 %; Mean Corpuscular HGB Conc 32.1 g/dL (30-55); Mean Corpuscular Hemoglobin 29.5 pg (27-33); Mean Corpuscular Volume 92.1 fl (85-98); Mean Platelet Volume 9.5 fL (7.4-10.4); Monocytes # 0.5 10^3/uL (0.2-0.9); Monocytes % 7.4 %; Neutrophils # 5.02 10^3/uL (1.8-7.7); Neutrophils % 71.6 %; Nucleated Red Blood Cells % 0 %; Platelet Count 293 10^3/cmm (157-399); Red Blood Count 4.81 10^6/uL (3.85-5.65); White Blood Count 7.01 10^3/uL (3.29-11.43)
[2023-05-25 11:18] LABS: Estmated Average Glucose 183
[2023-05-25 11:39] LABS: 25 Hydroxy Vitamin D 47 ng/mL (30-100); Alanine Aminotransferase 14 U/L (0-33); Albumin Level 3.7 g/dL (3.5-5.2); Alkaline Phosphatase 63 U/L (35-105); Anion Gap 15.4 (5-19); Aspartate Amino Transferase 17 U/L (0-32); Blood Urea Nitrogen 15 mg/dL (8-23); Calcium 9.1 mg/dL (8.5-10.5); Carbon Dioxide 27 mmol/L (22-29); Chloride 101 mmol/L (98-107); Chol HDL Ratio 2.87 mg/dL (0.0-4.40); Cholesterol 149 mg/dL (0-200); Globulin 2.4 g/dL (1.3-4.6); Glucose 173 mg/dL (65-115); HDL Cholesterol 52 mg/dL (60-100); Iron 137 ug/dL (37-145); LDL Cholesterol Calculated 80 mg/dL (50-129); Osmolality Calculated 293 mOsm/kg (285-295); Percent Saturation 50.1 % (20-50); Potassium 4.4 mmol/L (3.5-5.1); Sodium 139 mmol/L (136-145); Thyroid Stimulating Hormone 1.94 uIU/mL (0.27-4.20); Total Bilirubin 0.8 mg/dL (0.15-1.2); Total Iron Binding Capacity 273 mcg/dl; Total Protein 6.1 g/dL (6.6-8.7); Triglycerides 84 mg/dL (0-150); Unsaturated Iron Binding 136 ug/dL (112-347); VLDL Cholestrol Calculation 17 mg/dL (0-30)
[2023-05-25 12:54] LABS: Vitamin B12 > 2000 pg/mL (232-1245)
== END 2023-05-25 10:42 | disposition home or self-care (01) ==
PROVIDERS: PCP Nurse Practitioner; Visit Provider Nurse Practitioner
DX: K51.00 Ulcerative (chronic) pancolitis without complications (principal); E61.1 Iron deficiency; E03.9 Hypothyroidism, unspecified; E11.65 Type 2 diabetes mellitus with hyperglycemia
CPT/HCPCS: 36415; 80053; 80061; 82306; 82607; 83036; 83540; 83550; 84443; 85025

== ENCOUNTER → 2023-08-11 14:41 | Outpatient (BNVA) | payer MEDICARE, MEDICAID, SELFPAY | PROVIDERS: PCP Nurse Practitioner; Visit Provider Internal Medicine | DX: I11.0 Hypertensive heart disease with heart failure (principal); I50.9 Heart failure, unspecified; I25.10 Atherosclerotic heart disease of native coronary artery without angina pectoris; I48.91 Unspecified atrial fibrillation; G47.33 Obstructive sleep apnea (adult) (pediatric); Z79.01 Long term (current) use of anticoagulants | CPT/HCPCS: 99214 ==

== ENCOUNTER 2023-08-24 09:08 | Outpatient (CLI) | payer MEDICARE, MEDICAID, SELFPAY ==
[2023-08-24 09:34] LABS: Add Urine Microscopic? NO; Charge for UA Resulting for Rev
[2023-08-24 09:46] LABS: Bilirubin Urine Neg (Negative); Blood Urine Neg (Negative); Glucose Urine UA 4+ (Normal); Ketones Urine Negative (Negative); Leukocyte Esterase Urine Negative (Negative); Nitrate Urine Negative (Negative); Protein Urine Neg (Negative); Specific Gravity, Urine 1.015 (1.005-1.030); Urine Appearance Clear (CLEAR); Urine Color Yellow (Yellow); Urobilinogen Urine Norm (Negative); pH Urine 5 (5-7)
[2023-08-24 09:48] LABS: Estmated Average Glucose 131; Hemoglobin A1C 6.2 % (4.0-6.0)
[2023-08-24 10:23] LABS: Alanine Aminotransferase 13 U/L (0-33); Albumin Level 3.7 g/dL (3.5-5.2); Alkaline Phosphatase 55 U/L (35-105); Anion Gap 12.5 (5-19); Aspartate Amino Transferase 19 U/L (0-32); Blood Urea Nitrogen 14 mg/dL (8-23); Calcium 8.8 mg/dL (8.5-10.5); Carbon Dioxide 30 mmol/L (22-29); Chloride 102 mmol/L (98-107); Chol HDL Ratio 3.28 mg/dL (0.0-4.40); Cholesterol 151 mg/dL (0-200); Globulin 2.4 g/dL (1.3-4.6); Glucose 133 mg/dL (65-115); HDL Cholesterol 46 mg/dL (60-100); LDL Cholesterol Calculated 82 mg/dL (50-129); LDL HDL Ratio 1.78 RATIO (0.00-3.22); Osmolality Calculated 292 mOsm/kg (285-295); Potassium 4.5 mmol/L (3.5-5.1); Sodium 140 mmol/L (136-145); Total Bilirubin 0.7 mg/dL (0.15-1.2); Total Protein 6.1 g/dL (6.6-8.7); Triglycerides 114 mg/dL (0-150); Vitamin B12 1625 pg/mL (232-1245)
== END 2023-08-24 09:09 | disposition home or self-care (01) ==
LOC: LAB 09:11
PROVIDERS: PCP Nurse Practitioner; Visit Provider Nurse Practitioner
DX: E11.9 Type 2 diabetes mellitus without complications (principal)
CPT/HCPCS: 80053; 80061; 81003; 82607; 83036

== ENCOUNTER 2023-11-22 15:58 | Outpatient (CLI) | payer MEDICARE, MEDICAID, SELFPAY ==
[2023-11-22 16:53] LABS: Estmated Average Glucose 134; Hemoglobin A1C 6.3 % (4.0-6.0)
[2023-11-22 17:16] LABS: Alanine Aminotransferase 14 U/L (0-33); Albumin Level 3.9 g/dL (3.5-5.2); Alkaline Phosphatase 62 U/L (35-105); Anion Gap 10.6 (5-19); Aspartate Amino Transferase 16 U/L (0-32); Blood Urea Nitrogen 6 mg/dL (8-23); Calcium 8.4 mg/dL (8.5-10.5); Carbon Dioxide 28 mmol/L (22-29); Chloride 105 mmol/L (98-107); Chol HDL Ratio 2.94 mg/dL (0.0-4.40); Cholesterol 141 mg/dL (0-200); Globulin 2.5 g/dL (1.3-4.6); Glucose 131 mg/dL (65-115); HDL Cholesterol 48 mg/dL (60-100); LDL Cholesterol Calculated 71 mg/dL (50-129); LDL HDL Ratio 1.48 RATIO (0.00-3.22); Osmolality Calculated 289 mOsm/kg (285-295); Potassium 3.6 mmol/L (3.5-5.1); Sodium 140 mmol/L (136-145); Total Bilirubin 0.7 mg/dL (0.15-1.2); Total Protein 6.4 g/dL (6.6-8.7); Triglycerides 111 mg/dL (0-150)
[2023-11-22 18:23] LABS: Creatinine Urine, Random 24 mg/dL (28-217); Microalbumin Random Urine 1 ug/dL (0-20)
[2023-11-22 18:24] LABS: Microalbum Creatinine Ratio Ur 42 mg/dL (0-20)
== END 2023-11-22 15:59 | disposition home or self-care (01) ==
LOC: LAB 15:59
PROVIDERS: PCP Nurse Practitioner; Visit Provider Nurse Practitioner
DX: E11.65 Type 2 diabetes mellitus with hyperglycemia (principal)
CPT/HCPCS: 80053; 80061; 82044; 83036

== ENCOUNTER 2024-02-22 15:46 | Outpatient (CLI) | payer MEDICARE, MEDICAID, SELFPAY ==
[2024-02-22 17:02] LABS: Estmated Average Glucose 160; Hemoglobin A1C 7.2 % (4.0-6.0)
== END 2024-02-22 15:47 | disposition home or self-care (01) ==
LOC: LAB 15:47
PROVIDERS: PCP Nurse Practitioner; Visit Provider Nurse Practitioner
DX: E11.9 Type 2 diabetes mellitus without complications (principal)
CPT/HCPCS: 36415; 83036

== ENCOUNTER → 2024-03-20 12:09 | Outpatient (BNVA) | payer MEDICARE, MEDICAID, SELFPAY | PROVIDERS: PCP Nurse Practitioner; Visit Provider Internal Medicine | DX: I25.10 Atherosclerotic heart disease of native coronary artery without angina pectoris (principal); I48.91 Unspecified atrial fibrillation; I11.0 Hypertensive heart disease with heart failure; I50.9 Heart failure, unspecified; G47.33 Obstructive sleep apnea (adult) (pediatric); Z79.01 Long term (current) use of anticoagulants | CPT/HCPCS: 99214 ==

== ENCOUNTER → 2024-03-27 17:05 | Outpatient (BNVA) | payer MEDICARE, MEDICAID, SELFPAY | PROVIDERS: PCP Nurse Practitioner; Visit Provider Nurse Practitioner | DX: E11.65 Type 2 diabetes mellitus with hyperglycemia (principal); N39.0 Urinary tract infection, site not specified | CPT/HCPCS: 81000; 87086 ==

== ENCOUNTER 2024-05-24 11:56 | Outpatient (CLI) | payer MEDICARE, SELFPAY ==
[2024-05-24 13:59] LABS: Alanine Aminotransferase 15 U/L (0-33); Albumin Level 3.7 g/dL (3.5-5.2); Alkaline Phosphatase 67 U/L (35-105); Anion Gap 14.5 (5-19); Aspartate Amino Transferase 17 U/L (0-32); Blood Urea Nitrogen 12 mg/dL (8-23); Calcium 9.4 mg/dL (8.5-10.5); Carbon Dioxide 28 mmol/L (22-29); Chloride 103 mmol/L (98-107); Chol HDL Ratio 3.19 mg/dL (0.0-4.40); Cholesterol 134 mg/dL (0-200); Globulin 2.5 g/dL (1.3-4.6); Glucose 163 mg/dL (65-115); HDL Cholesterol 42 mg/dL (60-100); LDL Cholesterol Calculated 75 mg/dL (50-129); LDL HDL Ratio 1.79 RATIO (0.00-3.22); Osmolality Calculated 295 mOsm/kg (285-295); Potassium 4.5 mmol/L (3.5-5.1); Sodium 141 mmol/L (136-145); Thyroid Stimulating Hormone 1.47 uIU/mL (0.27-4.20); Total Bilirubin 0.8 mg/dL (0.15-1.2); Total Protein 6.2 g/dL (6.6-8.7); Triglycerides 87 mg/dL (0-150); Vitamin B12 1383 pg/mL (232-1245)
[2024-05-24 14:57] LABS: Estmated Average Glucose 143; Hemoglobin A1C 6.6 % (4.0-6.0)
== END 2024-05-24 11:57 | disposition home or self-care (01) ==
LOC: LAB 11:59
PROVIDERS: PCP Nurse Practitioner; Visit Provider Nurse Practitioner
DX: E11.9 Type 2 diabetes mellitus without complications (principal)
CPT/HCPCS: 36415; 80053; 80061; 82607; 83036; 84443

== ENCOUNTER 2024-08-21 15:50 | Outpatient (CLI) | payer MEDICARE, MEDICAID, SELFPAY ==
[2024-08-21 16:56] LABS: Estmated Average Glucose 148; Hemoglobin A1C 6.8 % (4.0-6.0)
[2024-08-21 17:45] LABS: 25 Hydroxy Vitamin D 40 ng/mL (30-100); Alanine Aminotransferase 17 U/L (0-33); Albumin Level 3.9 g/dL (3.5-5.2); Alkaline Phosphatase 78 U/L (35-105); Anion Gap 15.1 (5-19); Aspartate Amino Transferase 21 U/L (0-32); Blood Urea Nitrogen 17 mg/dL (8-23); Calcium 8.8 mg/dL (8.5-10.5); Carbon Dioxide 25 mmol/L (22-29); Chloride 104 mmol/L (98-107); Chol HDL Ratio 3.37 mg/dL (0.0-4.40); Cholesterol 145 mg/dL (0-200); Globulin 2.4 g/dL (1.3-4.6); Glucose 189 mg/dL (65-115); HDL Cholesterol 43 mg/dL (60-100); LDL Cholesterol Calculated 72 mg/dL (50-129); Osmolality Calculated 297 mOsm/kg (285-295); Potassium 4.1 mmol/L (3.5-5.1); Sodium 140 mmol/L (136-145); Thyroid Stimulating Hormone 6.82 uIU/mL (0.27-4.20); Total Bilirubin 0.5 mg/dL (0.15-1.2); Total Protein 6.3 g/dL (6.6-8.7); Triglycerides 148 mg/dL (0-150); VLDL Cholestrol Calculation 30 mg/dL (0-30)
== END 2024-08-21 15:51 | disposition home or self-care (01) ==
LOC: LAB 15:56
PROVIDERS: PCP Nurse Practitioner; Visit Provider Nurse Practitioner
DX: E55.9 Vitamin D deficiency, unspecified (principal); E11.65 Type 2 diabetes mellitus with hyperglycemia; E03.8 Other specified hypothyroidism
CPT/HCPCS: 36415; 80053; 80061; 82306; 83036; 84443

== ENCOUNTER → 2024-09-24 10:28 | Outpatient (BNVA) | payer MEDICARE, MEDICAID, SELFPAY | PROVIDERS: PCP Nurse Practitioner; Visit Provider Nurse Practitioner Family | DX: I11.0 Hypertensive heart disease with heart failure (principal); I50.9 Heart failure, unspecified; I25.10 Atherosclerotic heart disease of native coronary artery without angina pectoris; I48.91 Unspecified atrial fibrillation; E03.9 Hypothyroidism, unspecified; E78.5 Hyperlipidemia, unspecified; G47.33 Obstructive sleep apnea (adult) (pediatric); R60.9 Edema, unspecified | CPT/HCPCS: 99214 ==

== ENCOUNTER 2024-10-16 07:32 | Outpatient (CLI) | payer MEDICARE, MEDICAID, SELFPAY ==
--- NOTE | 2024-10-16 07:45 | USCV_ITS ---
Loreta Goode Age: 79 Gender: F : 1945 Exam Date: 10/16/2024 08:03 Ordering Phys: Deshawn Goode Technologist: Exam Location: [facility] [place] Indication: chf sob BP: 130 / 70 HR: 82 Rhythm: Sinus Technical Quality: Adequate MEASUREMENTS (Male / Female) Normal Values 2D ECHO LV Diastolic Diameter PLAX 4.2 cm 4.2 - 5.9 / 3.9 - 5.3 cm IVS Diastolic Thickness 1.5 cm 0.6 - 1.0 / 0.6 - 0.9 cm IVS Systolic Thickness 1.5 cm LVPW Diastolic Thickness 1.3 cm 0.6 - 1.0 / 0.6 - 0.9 cm LVPW Systolic Thickness 1.6 cm LVOT Diameter 2.0 cm LV Ejection Fraction 2D Teich 63.6 % LV Ejection Fraction MOD 4C 65.4 % LV Ejection Fraction MOD 2C 56.2 % LV Ejection Fraction 2C AL 56.8 % LA Diameter 5.3 cm RA Systolic Volume 4C AL 103.2 ml RA Systolic Volume 4C MOD 97.7 ml Aorta at Sinotubular Diameter 2.8 cm M-MODE LA Ao Ratio MM 1.4 AV Cusp Separation MM 2.0 cm DOPPLER AV Peak Velocity 96.0 cm/s LVOT Peak Velocity 69.0 cm/s AV Area Cont Eq vti 2.8 cm squared AV Area Cont Eq pk 2.3 cm squared MV Area PHT 5.4 cm squared Mitral E to A Ratio 4.4 TV Peak Velocity 182.0 cm/s TR Peak Velocity 221.0 cm/s TR Peak Gradient 19.5 mmHg TV Peak E Velocity 82.0 cm/s PV Peak Velocity 84.0 cm/s FINDINGS Left Ventricle Left ventricle is normal in size. LV systolic function is normal with EF of 60-65%. No regional wall motion abnormalities. Right Ventricle Normal in size and function Right Atrium Severely dilated Left Atrium Severely dilated Mitral Valve Mild mitral annular calcification. Mild mitral regurgitation Aortic Valve Aortic valve is thickened. No significant stenosis or regurgitation. Tricuspid Valve Mild tricuspid regurgitation. Insufficient TR jet to calculate RVSP Pulmonic Valve Not well visualized Pericardium Normal Aorta Normal in size IVC Appears to be normal CONCLUSIONS LV systolic function is normal with EF of 60-65%. Severe biatrial enlargement. Mild mitral regurgitation. Mild tricuspid regurgitation Compared to prior echocardiogram from 2022, no significant changes are seen Blade Morales MD (Electronically Signed) Final Date: 24 Oct 2024 08:45 S
== END 2024-10-16 07:33 | disposition home or self-care (01) ==
PROVIDERS: PCP Nurse Practitioner; Visit Provider Nurse Practitioner
DX: I25.10 Atherosclerotic heart disease of native coronary artery without angina pectoris (principal); R93.1 Abnormal findings on diagnostic imaging of heart and coronary circulation; I34.81 Nonrheumatic mitral (valve) annulus calcification; I34.0 Nonrheumatic mitral (valve) insufficiency; I35.8 Other nonrheumatic aortic valve disorders; I07.1 Rheumatic tricuspid insufficiency
CPT/HCPCS: 93306

== ENCOUNTER 2024-11-20 08:08 | Outpatient (CLI) | payer MEDICARE, MEDICAID, SELFPAY ==
[2024-11-20 09:39] LABS: Basophils % 0.6 %; Eosinophils # 0.2 10^3/uL (0.0-0.8); Eosinophils % 3.5 %; Hematocrit 39.6 % (36-47); Lymphocytes # 0.9 10^3/uL (0.8-4.8); Lymphocytes % 16.8 %; Mean Corpuscular HGB Conc 32.1 g/dL (30-55); Mean Corpuscular Hemoglobin 32.6 pg (27-33); Mean Corpuscular Volume 101.8 fl (85-98); Mean Platelet Volume 9.9 fL (7.4-10.4); Monocytes # 0.6 10^3/uL (0.2-0.9); Monocytes % 10.8 %; Neutrophils # 3.52 10^3/uL (1.8-7.7); Neutrophils % 67.9 %; Nucleated Red Blood Cells % 0 %; Platelet Count 281 10^3/cmm (157-399); Red Blood Count 3.89 10^6/uL (3.85-5.65); Red Cell Distribution Width 13.4 % (12.1-15.1); White Blood Count 5.18 10^3/uL (3.29-11.43)
[2024-11-20 10:13] LABS: Alanine Aminotransferase 13 U/L (0-33); Albumin Level 3.8 g/dL (3.5-5.2); Alkaline Phosphatase 65 U/L (35-105); Aspartate Amino Transferase 20 U/L (0-32); Blood Urea Nitrogen 12 mg/dL (8-23); Calcium 8.8 mg/dL (8.5-10.5); Carbon Dioxide 26 mmol/L (22-29); Chloride 104 mmol/L (98-107); Estmated Average Glucose 143; Free T4 Free Thyroxine 1.41 ng/dL (0.82-1.77); Globulin 2.5 g/dL (1.3-4.6); Glucose 131 mg/dL (65-115); Hemoglobin A1C 6.6 % (4.0-6.0); Osmolality Calculated 292 mOsm/kg (285-295); Sodium 140 mmol/L (136-145); T3 Free 2.4 PG/ML (2.0-4.4); Thyroid Stimulating Hormone 0.77 uIU/mL (0.27-4.20); Total Bilirubin 0.9 mg/dL (0.15-1.2); Total Protein 6.3 g/dL (6.6-8.7)
[2024-11-20 10:14] LABS: Anion Gap 14.3 (5-19); Potassium 4.3 mmol/L (3.5-5.1)
== END 2024-11-20 08:09 | disposition home or self-care (01) ==
PROVIDERS: PCP Nurse Practitioner; Visit Provider Nurse Practitioner
DX: I10 Essential (primary) hypertension (principal); E11.65 Type 2 diabetes mellitus with hyperglycemia; E03.8 Other specified hypothyroidism
CPT/HCPCS: 36415; 80053; 83036; 84439; 84443; 84481; 85025

== ENCOUNTER 2024-12-12 10:13 | Outpatient (CLI) | payer MEDICARE, MEDICAID, SELFPAY ==
[2024-12-12 11:03] LABS: Bilirubin Urine 1+ (Negative); Blood Urine 1+ (Negative); Glucose Urine UA Negative (Normal); Ketones Urine Trace (Negative); Leukocyte Esterase Urine Trace (Negative); Nitrate Urine Negative (Negative); Protein Urine 2+ (Negative); Specific Gravity, Urine 1.028 (1.005-1.030); Urine Appearance Clear (CLEAR); Urine Color Dark Yellow (Yellow)
[2024-12-12 11:05] LABS: Add Urine Microscopic? YES; Bacteria Urine 2+ /hpf; Hyaline Casts Urine 1.21 /lpf
[2024-12-12 11:22] LABS: Add Urine Culture? No
== END 2024-12-12 10:14 | disposition home or self-care (01) ==
PROVIDERS: PCP Nurse Practitioner; Visit Provider Nurse Practitioner
DX: I10 Essential (primary) hypertension (principal)
CPT/HCPCS: 81001